=== PATIENT | male | born 1960 | race American Indian/Alaskan Native ===

== ENCOUNTER 2017-04-30 11:18 | Emergency (ER) | payer MEDICAID ==
[2017-04-30 12:14] LABS: Basophils % (Auto) 0.8 % (0.0-1.8); Hematocrit 41.1 % (35.5-45.6); Hemoglobin 13.2 gm/dl (11.8-15.2); Mean Corpuscular HGB Conc 32 % (32-34); Mean Corpuscular Hemoglobin 29 pg (28-32); Mean Corpuscular Volume 89 fl (84-94); Platelet Count 196 K/mm3 (140-440); Red Blood Count 4.63 M/mm3 (3.65-5.03); Red Cell Distribution Width 14.4 % (13.2-15.2); White Blood Count 10.5 K/mm3 (4.5-11.0)
[2017-04-30 12:39] LABS: Anion Gap 18 mmol/L; BUN/Creatinine Ratio 16.92; Blood Urea Nitrogen 22 mg/dL (9-20); Calcium 9.9 mg/dL (8.4-10.2); Carbon Dioxide 26 mmol/L (22-30); Chloride 98.8 mmol/L (98-107); Glucose 180 mg/dL (75-100); Potassium 3.9 mmol/L (3.6-5.0); Sodium 139 mmol/L (137-145)
[2017-04-30 12:51] LABS: Alanine Aminotransferase 13 units/L (7-56); Albumin 4.1 g/dL (3.9-5); Albumin/Globulin Ratio 1.2 %; Alkaline Phosphatase 60 units/L (35-129); Total Protein 7.4 g/dL (6.3-8.2)
[2017-04-30 12:58] LABS: Bacteria,Urine 1+ /HPF (Negative); Bilirubin,Urine NEG (Negative); Blood,Urine NEG (Negative); Ketones,Urine NEG (Negative); Leukocyte Esterase,Urine NEG (Negative); Mucus,Urine FEW /HPF; Nitrite,Urine NEG (Negative); Protein,Urine <15 mg/dL mg/dL (Negative); Urobilinogen,Urine < 2.0 mg/dL (<2.0)
--- NOTE | 2017-04-30 14:03 | Emergency Department Report ---
ED General Adult HPI - General Chief complaint: Dizziness Stated complaint: DIZZINESS Time Seen by Provider: 04/30/17 12:39 Source: patient Mode of arrival: Ambulatory Limitations: No Limitations - History of Present Illness Initial comments: The patient came to this facility he tells me "just as a precaution". 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 He states that his shop was underneath. He has had symptoms of malaise and increased allergies over the last month. He is not dizzy. He states he is compliant with his medicine for diabetes and hypertension. He admits that he does not have a doctor though. He is a type II diabetic. He does not complain of any difficulty in walking or vertigo. In fact he is not even complaining of dizziness at this time. He is worried about "mold". He denies pain or shortness of breath. -: month(s) Consistency: intermittent Improves with: none Worsens with: none Associated Symptoms: denies other symptoms - Related Data Allergies Allergy/AdvReac Type Severity Reaction Status Date / Time No Known Allergies Allergy Unverified 04/30/17 11:27 ED Review of Systems ROS: Stated complaint: DIZZINESS Other details as noted in HPI Constitutional: denies: chills, fever Eyes: denies: eye pain, eye discharge, vision change ENT: as per HPI, congestion. denies: ear pain, throat pain Respiratory: denies: cough, shortness of breath, wheezing Cardiovascular: denies: chest pain, palpitations Endocrine: no symptoms reported Gastrointestinal: denies: abdominal pain, nausea, diarrhea Genitourinary: denies: urgency, dysuria Musculoskeletal: denies: back pain, joint swelling, arthralgia Skin: denies: rash, lesions Neurological: denies: headache, weakness, paresthesias Psychiatric: denies: anxiety, depression Hematological/Lymphatic: denies: easy bleeding, easy bruising ED Past Medical Hx - Past Medical History Previous Medical History?: Yes Hx Hypertension: Yes Hx Diabetes: Yes - Surgical History Past Surgical History?: Yes Additional Surgical History: bilaterally knee surgery - Social History Smoking Status: Never Smoker Substance Use Type: Alcohol, Marijuana ED Physical Exam - General Limitations: No Limitations General appearance: alert, in no apparent distress - Head Head exam: Present: atraumatic, normocephalic - Eye Eye exam: Present: normal appearance. Absent: scleral icterus - ENT ENT exam: Present: mucous membranes moist - Neck Neck exam: Present: normal inspection. Absent: tenderness, meningismus - Respiratory Respiratory exam: Present: normal lung sounds bilaterally. Absent: respiratory distress - Cardiovascular Cardiovascular Exam: Present: regular rate, normal rhythm. Absent: systolic murmur, diastolic murmur, rubs, gallop - GI/Abdominal GI/Abdominal exam: Present: soft, normal bowel sounds. Absent: distended, tenderness, guarding, rebound - Rectal Rectal exam: Present: deferred - Extremities Exam Extremities exam: Present: normal inspection - Back Exam Back exam: Present: normal inspection - Neurological Exam Neurological exam: Present: alert, oriented X3, CN II-XII intact. Absent: motor sensory deficit - Psychiatric Psychiatric exam: Present: normal affect, normal mood - Skin Skin exam: Present: warm, dry, intact, normal color. Absent: rash ED Course Vital Signs 04/30/17 04/30/17 04/30/17 11:27 11:28 12:10 Temperature 98.0 F Pulse Rate 90 79 Respiratory 11 L Rate Blood Pressure 130/92 130/92 O2 Sat by Pulse 100 Oximetry - Reevaluation(s) Reevaluation #1: Patient rested comfortably and was symptom free here in the emergency department. He is referred to primary care. 04/30/17 14:01 ED Medical Decision Making - Lab Data Result diagrams: 04/30/17 11:42 04/30/17 11:42 Laboratory Results - last 24 hr 04/30/17 04/30/17 04/30/17 11:34 11:42 11:42 WBC 10.5 RBC 4.63 Hgb 13.2 Hct 41.1 MCV 89 MCH 29 MCHC 32 RDW 14.4 Plt Count 196 Lymph % (Auto) 21.1 [place] % (Auto) 5.6 Eos % (Auto) 2.0 Baso % (Auto) 0.8 Lymph # 2.2 [place] # 0.6 Eos # 0.2 Baso # 0.1 Seg Neutrophils % 70.5 H Seg Neutrophils # 7.4 VBG pH Sodium 139 Potassium 3.9 Chloride 98.8 Carbon Dioxide 26 Anion Gap 18 BUN 22 H Creatinine 1.3 Estimated GFR > 60 BUN/Creatinine Ratio 16.92 Glucose 180 H POC Glucose 181 H Calcium 9.9 Total Bilirubin 0.50 AST 14 ALT 13 Alkaline Phosphatase 60 Total Protein 7.4 Albumin 4.1 Albumin/Globulin Ratio 1.2 Urine Color Urine Turbidity Urine pH Ur Specific [place] Urine Protein Urine Glucose (UA) Urine Ketones Urine Blood Urine Nitrite Urine Bilirubin Urine Urobilinogen Ur Leukocyte Esterase Urine WBC (Auto) Urine RBC (Auto) Urine Bacteria (Auto) Hyaline Casts Urine Mucus 04/30/17 04/30/17 11:42 12:39 WBC RBC Hgb Hct MCV MCH MCHC RDW Plt Count Lymph % (Auto) [place] % (Auto) Eos % (Auto) Baso % (Auto) Lymph # [place] # Eos # Baso # Seg Neutrophils % Seg Neutrophils # VBG pH 7.405 Sodium Potassium Chloride Carbon Dioxide Anion Gap BUN Creatinine Estimated GFR BUN/Creatinine Ratio Glucose POC Glucose Calcium Total Bilirubin AST ALT Alkaline Phosphatase Total Protein Albumin Albumin/Globulin Ratio Urine Color Yellow Urine Turbidity Clear Urine pH 5.0 Ur Specific [place] 1.020 Urine Protein <15 mg/dl Urine Glucose (UA) Neg Urine Ketones Neg Urine Blood Neg Urine Nitrite Neg Urine Bilirubin Neg Urine Urobilinogen < 2.0 Ur Leukocyte Esterase Neg Urine WBC (Auto) 1.0 Urine RBC (Auto) 1.0 Urine Bacteria (Auto) 1+ Hyaline Casts 1 Urine Mucus Few Critical care attestation.: If time is entered above; I have spent that time in minutes in the direct care of this critically ill patient, excluding procedure time. ED Disposition Clinical Impression: Type 2 diabetes mellitus Qualifiers: Diabetes mellitus complication status: without complication Diabetes mellitus care home insulin use: without long term care administrator use Qualified Code(s): E11.9 - Type 2 diabetes mellitus without complications Allergic rhinitis Qualifiers: Chronicity: chronic Allergic rhinitis trigger: fungal spores Allergic rhinitis seasonality: non-seasonal Qualified Code(s): J30.89 - Other allergic rhinitis Disposition: DC-01 TO HOME OR SELFCARE Is pt being admited?: No Does the pt Need Aspirin: No Condition: Stable Instructions: Diabetes Mellitus Type 2 in Adults (ED) Additional Instructions: Follow-up with primary care physician and strongly recommended. Over-the- counter Zyrtec or Claritin would help with severe allergic symptoms. Obviously tried to to avoid a moldy environment. Referrals: PRIMARY CARE [Primary Care Provider] - 3-5 Days [facility] [Provider Group] - 3-5 Days Time of Disposition: 14:03
[2017-04-30 14:24] VITALS: BP 149/78
== END 2017-04-30 14:23 | disposition home or self-care (01) ==
LOC: ED 11:18
DX: E11.9 Type 2 diabetes mellitus without complications (principal); J30.9 Allergic rhinitis, unspecified; I10 Essential (primary) hypertension; F12.10 Cannabis abuse, uncomplicated
CPT/HCPCS: 36415; 80053; 81001; 82805; 82962; 85025; 99284

== ENCOUNTER 2017-06-19 09:25 | Inpatient (IN) | payer MEDICAID ==
[2017-06-19 10:17] LABS: Basophils % (Auto) 0.8 % (0.0-1.8); Eosinophils % (Auto) 1.1 % (0.0-4.3); Hematocrit 43.6 % (35.5-45.6); Hemoglobin 14.3 gm/dl (11.8-15.2); Mean Corpuscular HGB Conc 33 % (32-34); Mean Corpuscular Hemoglobin 30 pg (28-32); Mean Corpuscular Volume 91 fl (84-94); Platelet Count 214 K/mm3 (140-440); Red Blood Count 4.79 M/mm3 (3.65-5.03); Red Cell Distribution Width 14.8 % (13.2-15.2); White Blood Count 12.4 K/mm3 (4.5-11.0)
[2017-06-19 10:31] LABS: Creatine Kinase MB 2.1 ng/mL (0.0-4.0)
[2017-06-19 10:32] LABS: Alanine Aminotransferase 18 units/L (7-56); Albumin 4.1 g/dL (3.9-5); Albumin/Globulin Ratio 1.2 %; Alkaline Phosphatase 72 units/L (35-129); Anion Gap 17 mmol/L; BUN/Creatinine Ratio 13; Blood Urea Nitrogen 13 mg/dL (9-20); Calcium 9.5 mg/dL (8.4-10.2); Carbon Dioxide 27 mmol/L (22-30); Chloride 100.1 mmol/L (98-107); Creatine Kinase 159 units/L (55-170); Glucose 202 mg/dL (75-100); Potassium 4.3 mmol/L (3.6-5.0); Sodium 140 mmol/L (137-145); Total Protein 7.6 g/dL (6.3-8.2)
[2017-06-19] MEDS ORDERED: APRESOLINE IV ONE (11:14)
[2017-06-19 11:49] LABS: INR 0.94 (0.87-1.13)
--- NOTE | 2017-06-19 12:33 | Cat Scan Report ---
CT HEAD WITHOUT CONTRAST: 06/19/17 09:25:00 CLINICAL: Headache. TECHNIQUE: 2.5-mm noncontrast scans. COMPARISON:None FINDINGS: The ventricles are normal size. The frontal lobe sulci are mildly enlarged.A tiny left basal ganglia lacunar infarct. No suspicious hypodensity. No mass or mass effect. No hemorrhage, edema or extra-axial collection. The sinuses are clear. Normal orbits and soft tissues. The calvarium and skull base are intact. IMPRESSION: Mild cortical atrophy and a tiny left basal ganglia chronic lacunar infarct. No acute changes.
[2017-06-19] MEDS ORDERED: ZOFRAN IV ONE (12:37)
[2017-06-19] MEDS ORDERED: ASPIRIN PO ONE (12:37)
[2017-06-19] MEDS ORDERED: NACL 0.9% 500 ML 500 ML IV ONE (12:37)
[2017-06-19] MEDS ORDERED: NORMODYNE IV ONE (12:37)
--- NOTE | 2017-06-19 12:38 | Emergency Department Report ---
ED General Adult HPI - General Chief complaint: High BP Stated complaint: DIZZY Time Seen by Provider: 06/19/17 12:19 Source: patient Mode of arrival: Ambulatory Limitations: No Limitations - History of Present Illness Initial comments: This is a 57-year-old male. The patient has no primary care doctor locally. He moved here from [place] 5 months ago. He complains of dizziness and generalized weakness. The dizzy sensation has been presents since . It is constant. It has no exacerbating or relieving factors. He describes it as "a funny feeling." He has no ataxia. He has no vertigo. He has no syncope. He also describes a headache. The headache is throbbing and global. The headache started a few days ago. It is not sudden thunderclap in nature. It did not reach maximal intensity within an hour. He has no exacerbating or relieving factors. Patient also describes "funny feeling in my chest." He indicates that he is not having chest pain, chest tightness. He denies vomiting and diaphoresis. He also indicates that he is having shortness of breath. There are no pulmonary embolus or DVT risk factors. His symptoms do not have exacerbating or relieving factors. -: Gradual Location: head, chest Quality: aching Consistency: intermittent Improves with: none Worsens with: none Associated Symptoms: headaches, loss of appetite, shortness of breath, weakness. denies: chest pain - Related Data Home Medications Medication Instructions Recorded Confirmed Last Taken Unobtainable 06/19/17 06/19/17 Unknown Allergies Allergy/AdvReac Type Severity Reaction Status Date / Time No Known Allergies Allergy Unverified 04/30/17 11:27 ED Review of Systems ROS: Stated complaint: DIZZY Other details as noted in HPI Constitutional: malaise Eyes: denies: eye discharge ENT: denies: epistaxis Respiratory: denies: cough Cardiovascular: denies: chest pain Gastrointestinal: denies: abdominal pain Genitourinary: denies: dysuria Musculoskeletal: denies: back pain Neurological: headache. denies: weakness, numbness, paresthesias, confusion ED Past Medical Hx - Past Medical History Hx Hypertension: Yes Hx Diabetes: Yes - Surgical History Additional Surgical History: bilaterally knee surgery - Social History Smoking Status: Never Smoker Substance Use Type: Marijuana - Medications Home Medications: Home Medications Medication Instructions Recorded Confirmed Last Taken Type Unobtainable 06/19/17 06/19/17 Unknown History ED Physical Exam - General Limitations: No Limitations General appearance: alert, in no apparent distress - Head Head exam: Present: atraumatic, normocephalic - Eye Eye exam: Present: normal appearance, EOMI, other (visual acuity intact to finger counting, color perception, reading at a close distance). Absent: nystagmus - ENT ENT exam: Present: normal exam, normal orophraynx, mucous membranes moist, TM's normal bilaterally, normal external ear exam - Neck Neck exam: Present: normal inspection, full ROM - Respiratory Respiratory exam: Present: normal lung sounds bilaterally. Absent: respiratory distress - Cardiovascular Cardiovascular Exam: Present: regular rate, normal rhythm, normal heart sounds. Absent: systolic murmur, diastolic murmur, rubs, gallop - GI/Abdominal GI/Abdominal exam: Present: soft, normal bowel sounds. Absent: distended, tenderness, guarding, rebound, rigid, pulsatile mass - Rectal Rectal exam: Present: deferred - Extremities Exam Extremities exam: Present: normal inspection, full ROM, normal capillary refill. Absent: pedal edema, joint swelling, calf tenderness - Back Exam Back exam: Present: normal inspection, full ROM. Absent: tenderness, CVA tenderness (R), paraspinal tenderness, vertebral tenderness - Neurological Exam Neurological exam: Present: alert, oriented X3, normal gait (normal gait. Normal tandem gait. Negative pronator drift. Normal [id number]. No past pointing.), other (Extraocular movements intact. Tongue midline. No facial droop. Facial sensation intact to light touch in the V1, V2, V3 distribution bilaterally. 5 and 5 strength in 4 extremities.. Sensation is intact to light touch in 4 extremities.). Absent: motor sensory deficit - Psychiatric Psychiatric exam: Present: normal affect, normal mood, anxious - Skin Skin exam: Present: warm, dry, intact, normal color. Absent: rash ED Course Vital Signs 06/19/17 06/19/17 06/19/17 09:45 10:51 11:01 Temperature 98 F Pulse Rate 82 82 Respiratory 18 17 Rate Blood Pressure 240/134 195/153 O2 Sat by Pulse 99 100 100 Oximetry 06/19/17 06/19/17 06/19/17 11:02 11:15 11:30 Temperature Pulse Rate 85 82 Respiratory 18 16 18 Rate Blood Pressure 212/149 203/146 O2 Sat by Pulse 100 100 100 Oximetry 06/19/17 06/19/17 06/19/17 11:45 12:14 12:15 Temperature Pulse Rate 91 H Respiratory 18 7 L Rate Blood Pressure 209/146 219/136 219/136 O2 Sat by Pulse 100 100 Oximetry 06/19/17 06/19/17 06/19/17 12:30 12:45 13:00 Temperature Pulse Rate 92 H 95 H 93 H Respiratory 13 16 17 Rate Blood Pressure 210/129 215/142 221/145 O2 Sat by Pulse 100 100 100 Oximetry 06/19/17 06/19/17 06/19/17 13:15 13:17 13:30 Temperature Pulse Rate 89 90 81 Respiratory 20 18 Rate Blood Pressure 189/122 221/145 194/131 O2 Sat by Pulse 100 100 Oximetry 06/19/17 13:45 Temperature Pulse Rate 84 Respiratory 15 Rate Blood Pressure 186/131 O2 Sat by Pulse 100 Oximetry ED Medical Decision Making - Lab Data Result diagrams: 06/19/17 09:52 06/19/17 09:52 Vital Signs 06/19/17 06/19/17 06/19/17 09:45 10:51 11:01 Temperature 98 F Pulse Rate 82 82 Respiratory 18 17 Rate Blood Pressure 240/134 195/153 O2 Sat by Pulse 99 100 100 Oximetry 06/19/17 06/19/17 06/19/17 11:02 11:15 11:30 Temperature Pulse Rate 85 82 Respiratory 18 16 18 Rate Blood Pressure 212/149 203/146 O2 Sat by Pulse 100 100 100 Oximetry 06/19/17 06/19/17 06/19/17 11:45 12:14 12:15 Temperature Pulse Rate 91 H Respiratory 18 7 L Rate Blood Pressure 209/146 219/136 219/136 O2 Sat by Pulse 100 100 Oximetry 06/19/17 06/19/17 06/19/17 12:30 12:45 13:00 Temperature Pulse Rate 92 H 95 H 93 H Respiratory 13 16 17 Rate Blood Pressure 210/129 215/142 221/145 O2 Sat by Pulse 100 100 100 Oximetry 06/19/17 06/19/17 06/19/17 13:15 13:17 13:30 Temperature Pulse Rate 89 90 81 Respiratory 20 18 Rate Blood Pressure 189/122 221/145 194/131 O2 Sat by Pulse 100 100 Oximetry 06/19/17 13:45 Temperature Pulse Rate 84 Respiratory 15 Rate Blood Pressure 186/131 O2 Sat by Pulse 100 Oximetry Lab Results 06/19/17 06/19/17 06/19/17 Range/Units 09:52 09:52 11:22 WBC 12.4 H (4.5-11.0) K/mm3 RBC 4.79 (3.65-5.03) M/mm3 Hgb 14.3 (11.8-15.2) gm/dl Hct 43.6 (35.5-45.6) % MCV 91 (84-94) fl MCH 30 (28-32) pg MCHC 33 (32-34) % RDW 14.8 (13.2-15.2) % Plt Count 214 (140-440) K/mm3 Lymph % (Auto) 15.5 (13.4-35.0) % [place] % (Auto) 5.4 (0.0-7.3) % Eos % (Auto) 1.1 (0.0-4.3) % Baso % (Auto) 0.8 (0.0-1.8) % Lymph # 1.9 (1.2-5.4) K/mm3 [place] # 0.7 (0.0-0.8) K/mm3 Eos # 0.1 (0.0-0.4) K/mm3 Baso # 0.1 (0.0-0.1) K/mm3 Seg Neutrophils % 77.2 H (40.0-70.0) % Seg Neutrophils # 9.6 H (1.8-7.7) K/mm3 PT 13.1 (12.2-14.9) Sec. INR 0.94 (0.87-1.13) Sodium 140 (137-145) mmol/L Potassium 4.3 (3.6-5.0) mmol/L Chloride 100.1 (98-107) mmol/L Carbon Dioxide 27 (22-30) mmol/L Anion Gap 17 mmol/L BUN 13 (9-20) mg/dL Creatinine 1.0 (0.8-1.5) mg/dL Estimated GFR > 60 ml/min BUN/Creatinine Ratio 13 % Glucose 202 H (75-100) mg/dL Calcium 9.5 (8.4-10.2) mg/dL Total Bilirubin 0.40 (0.1-1.2) mg/dL AST 12 (5-40) units/L ALT 18 (7-56) units/L Alkaline Phosphatase 72 (35-129) units/L Total Creatine Kinase 159 (55-170) units/L CK-MB (CK-2) 2.1 (0.0-4.0) ng/mL CK-MB (CK-2) Rel Index 1.3 (0-4) Total Protein 7.6 (6.3-8.2) g/dL Albumin 4.1 (3.9-5) g/dL Albumin/Globulin Ratio 1.2 % - EKG Data -: EKG Interpreted by Me - EKG Data 06/19/17 14:04 Sinus, 84 bpm, borderline left axis deviation, QTC prolonged, frequent sinus pauses, not consistent with ST elevation myocardial infarction, repeat EKG is unchanged, appears unchanged from prior. - Radiology Data Radiology results: report reviewed, image reviewed Noncontrast CT scan of the brain is negative. X-ray of the chest is negative. - Medical Decision Making Differential diagnosis, including but not limited to: Hypertensive urgency, hypertensive cardiomyopathy, posterior reversible leukoencephalopathy, Assessment and plan: 57-year-old male with nonspecific weakness, nonspecific chest discomfort, quite hypertensive, GCS of 15, NIH score of 0, visual acuity intact to direct confrontation, no pulmonary embolus or DVT risk factors, low risk by well's criteria, will be admitted for treatment of symptomatic hypertensive urgency. He is given hydralazine and then labetalol. Case is presented to the Hospital physician, Dr. Welch, who accepts the patient to the medical service. Critical care attestation.: If time is entered above; I have spent that time in minutes in the direct care of this critically ill patient, excluding procedure time. ED Disposition Clinical Impression: Hypertensive urgency, malignant Disposition: DC-09 OP ADMIT IP TO THIS HOSP Is pt being admited?: Yes Condition: Good Referrals: PRIMARY CARE, [Primary Care Provider] - 3-5 Days
--- NOTE | 2017-06-19 12:48 | History and Physical Report ---
History of Present Illness Chief complaint: My head hurts, and my blood pressure is high History of present illness: 57 YO Male with HTN, DM, Obesity,Metabolic Syndrome presents to ED for evaluation. Pt states that he has experienced Headache, dizziness and weakness for the past 2 days. Pt states that symptoms have worsened over the past 6 hours. Pt denies alleviating or worsening factors. Pt denies fever, chills, CP, Palpitatons, Vertigo, BRBPR, Syncope, Vision changes, Back pain, NVD. Pt seen and evaluated in ED and found to have a blood pressure of 240/134. Pt found to be confused on exam but is able to protect his airway, and has a persistent headache. Pt treated with IV antihypertensive therapy. Past History Past Medical History: diabetes, hypertension Past Surgical History: total knee replacement Social history: single. denies: smoking, alcohol abuse, prescription drug abuse , IV drug use Family history: hypertension Medications and Allergies Allergies Allergy/AdvReac Type Severity Reaction Status Date / Time No Known Allergies Allergy Unverified 04/30/17 11:27 Home Medications Medication Instructions Recorded Confirmed Last Taken Type Lisinopril 40 mg PO DAILY 06/19/17 06/19/17 Unknown History metFORMIN 1,000 mg PO DAILY 06/19/17 06/19/17 06/19/17 History Active Meds: Active Medications Sodium Chloride (Nacl 0.9% 500 Ml) 500 mls @ 999 mls/hr IV ONCE ONE Stop: 06/19/17 13:07 Review of Systems Constitutional: no weight loss, no weight gain Ears, nose, mouth and throat: no ear pain, no ear discharge, no tinnitis, no decreased hearing, no nose pain, no nasal congestion, no nasal discharge, no sinus pressure Cardiovascular: no chest pain, no orthopnea, no palpitations, no rapid/ irregular heart beat, no edema Respiratory: no cough, no cough with sputum, no excessive sputum, no hemoptysis , no shortness of breath, no dyspnea on exertion Gastrointestinal: no abdominal pain, no nausea, no vomiting, no hematemesis Genitourinary Male: no hematuria, no flank pain, no discharge, no urinary frequency, no urinary hesitancy, no nocturia Rectal: no pain, no incontinence, no bleeding Musculoskeletal: no neck pain, no shooting arm pain, no arm numbness/tingling, no low back pain, no shooting leg pain, no leg numbness/tingling Integumentary: no rash, no pruritis, no redness, no sores, no wounds, no jaundice Neurological: no head injury, no transient paralysis, no paralysis, no weakness , no parathesias, no numbness, no tingling, no seizures, no syncope Psychiatric: no memory loss, no change in sleep habits, no sleep disturbances, no insomnia, no hypersomnia, no change in appetite, no change in libido, no suicidal ideation Endocrine: no heat intolerance, no polyphagia, no excessive thirst, no polydipsia, no polyuria, no nocturia, no excessive sweating Hematologic/Lymphatic: no easy bruising, no easy bleeding Allergic/Immunologic: no urticaria, no allergic rhinitis, no wheezing Exam - Constitutional Vitals: Temp Pulse Resp BP Pulse Ox 98 F 84 18 212/149 100 06/19/17 09:45 06/19/17 11:30 06/19/17 11:02 06/19/17 11:30 06/19/17 11:02 General appearance: Present: mild distress - EENT Eyes: Present: PERRL ENT: hearing intact, clear oral mucosa - Neck Neck: Present: supple, normal ROM - Respiratory Respiratory effort: normal Respiratory: bilateral: CTA - Cardiovascular Heart Sounds: Present: S1 & S2. Absent: rub, click - Extremities Extremities: pulses symmetrical, No edema Peripheral Pulses: within normal limits - Abdominal General gastrointestinal: Present: soft, non-tender, non-distended, normal bowel sounds Male genitourinary: Present: normal - Integumentary Integumentary: Present: clear, warm, dry - Musculoskeletal Musculoskeletal: gait normal, strength equal bilaterally - Psychiatric Psychiatric: no intact judgment & insight, no memory intact - Neurologic Neurologic: CNII-XII intact, moves all extremities Results - Labs CBC & Chem 7: 06/19/17 09:52 06/19/17 09:52 Labs: Abnormal lab results 06/19/17 06/19/17 Range/Units 09:52 09:52 WBC 12.4 H (4.5-11.0) K/mm3 Seg Neutrophils % 77.2 H (40.0-70.0) % Seg Neutrophils # 9.6 H (1.8-7.7) K/mm3 Glucose 202 H (75-100) mg/dL Assessment and Plan - Patient Problems (1) Hypertensive urgency, malignant Current Visit: Yes Status: Acute Plan to address problem: Neuro checks, IV hydralazine, restart lisinopril, monitor bp q shift, Goal systolic overnight 165-190. Pt admitted with systolic of 240. (2) Encephalopathy Current Visit: Yes Status: Acute (3) Headache Current Visit: Yes Status: Acute Qualifiers: Headache type: H Headache chronicity pattern: H Intractability: I Plan to address problem: Pain control, CT head, neuro checks, blood pressure control. (4) DVT prophylaxis Current Visit: Yes Status: Acute
--- NOTE | 2017-06-19 13:39 | XRay Report ---
CHEST TWO VIEWS: 06/19/17 09:25:00 CLINICAL: Shortness of breath. COMPARISON: None FINDINGS: Normal heart and pulmonary vasculature. The lungs are normally expanded and clear. The bones and soft tissues are normal. IMPRESSION: Normal.No acute cardiopulmonary process.
[2017-06-19] MEDS ORDERED: ZOFRAN IV PRN (13:48)
[2017-06-19] MEDS ORDERED: TYLENOL PO PRN (13:48)
[2017-06-19] MEDS ORDERED: DULCOLAX PR PRN (13:48)
[2017-06-19] MEDS ORDERED: PROVENTIL IH PRN (13:48)
[2017-06-19] MEDS ORDERED: MILK OF MAGNESIA PO PRN (13:48)
[2017-06-19 14:35] LABS: Bilirubin,Urine NEG (Negative); Blood,Urine NEG (Negative); Ketones,Urine NEG (Negative); Leukocyte Esterase,Urine NEG (Negative); Mucus,Urine FEW /HPF; Nitrite,Urine NEG (Negative); Protein,Urine <15 mg/dL mg/dL (Negative); RBC,Urine < 1.0 /HPF (0.0-6.0); Urobilinogen,Urine < 2.0 mg/dL (<2.0); WBC,Urine < 1.0 /HPF (0.0-6.0)
[2017-06-19] MEDS: APRESOLINE IV PRN (15:49)
[2017-06-20] MEDS: APRESOLINE IV PRN ×2 (07:32→17:02)
[2017-06-20] MEDS: NORVASC PO SCH (09:16)
[2017-06-20] MEDS ORDERED: ZESTRIL PO SCH ×2 (10:00→12:37)
--- NOTE | 2017-06-20 12:42 | Progress Note ---
Assessment and Plan Assessment and plan: 57-year-old -[place]in[place] male with past medical history significant for hypertension, diabetes mellitus2 presented to the emergency department with complaints of headache and weakness. In the emergency department systolic blood pressure was >240 and patient was admitted to the floor for the management of hyperglycemia and hypertensive urgency Hypertensive urgency - Patient was treated with IV hydralazine, currently he is also started with lisinopril and amlodipine, blood pressure is trending down Headache - CT head was negative, likely due to the uncontrolled hypertension - Resolved DM with hyperglycemia - Sliding scale insulin Medication noncompliance - Patient was counseled about medication adherence DVT prophylaxis Chemical Disposition Patient will be discharged tomorrow with oral medications and metformin. History Interval history: Patient was seen and evaluated this morning, patient was resting comfortably, headache subsided. Hospitalist Physical - Physical exam Narrative exam: Not in cardiopulmonary distress. The patient is obese. Vital signs as documented. Head exam is unremarkable. No scleral icterus . Neck is without jugular venous distension, thyromegaly, or carotid bruits. Lungs are clear to auscultation. Cardiac exam reveals regular rate and Rhythm. First and second heart sounds normal. No murmurs, rubs or gallops. Abdominal exam reveals normal bowel sounds, no masses, no organomegaly and no aortic enlargement. Extremities are nonedematous and both femoral and pedal pulses are normal. TACK PULLER: Alert and oriented 3. No focal weakness. - Constitutional Vitals: Temp Pulse Resp BP Pulse Ox 97.7 F 82 18 185/116 99 06/20/17 12:15 06/20/17 08:00 06/20/17 12:15 06/20/17 12:15 06/20/17 08:00 General appearance: Present: mild distress Results - Labs CBC & Chem 7: 06/19/17 09:52 06/19/17 09:52 Labs: Laboratory Last Values WBC 12.4 K/mm3 (4.5-11.0) H 06/19/17 09:52 RBC 4.79 M/mm3 (3.65-5.03) 06/19/17 09:52 Hgb 14.3 gm/dl (11.8-15.2) 06/19/17 09:52 Hct 43.6 % (35.5-45.6) 06/19/17 09:52 MCV 91 fl (84-94) 06/19/17 09:52 MCH 30 pg (28-32) 06/19/17 09:52 MCHC 33 % (32-34) 06/19/17 09:52 RDW 14.8 % (13.2-15.2) 06/19/17 09:52 Plt Count 214 K/mm3 (140-440) 06/19/17 09:52 Lymph % (Auto) 15.5 % (13.4-35.0) 06/19/17 09:52 [place] % (Auto) 5.4 % (0.0-7.3) 06/19/17 09:52 Eos % (Auto) 1.1 % (0.0-4.3) 06/19/17 09:52 Baso % (Auto) 0.8 % (0.0-1.8) 06/19/17 09:52 Lymph # 1.9 K/mm3 (1.2-5.4) 06/19/17 09:52 [place] # 0.7 K/mm3 (0.0-0.8) 06/19/17 09:52 Eos # 0.1 K/mm3 (0.0-0.4) 06/19/17 09:52 Baso # 0.1 K/mm3 (0.0-0.1) 06/19/17 09:52 Seg Neutrophils % 77.2 % (40.0-70.0) H 06/19/17 09:52 Seg Neutrophils # 9.6 K/mm3 (1.8-7.7) H 06/19/17 09:52 PT 13.1 Sec. (12.2-14.9) 06/19/17 11:22 INR 0.94 (0.87-1.13) 06/19/17 11:22 Sodium 140 mmol/L (137-145) 06/19/17 09:52 Potassium 4.3 mmol/L (3.6-5.0) 06/19/17 09:52 Chloride 100.1 mmol/L (98-107) 06/19/17 09:52 Carbon Dioxide 27 mmol/L (22-30) 06/19/17 09:52 Anion Gap 17 mmol/L 06/19/17 09:52 BUN 13 mg/dL (9-20) 06/19/17 09:52 Creatinine 1.0 mg/dL (0.8-1.5) 06/19/17 09:52 Estimated GFR > 60 ml/min 06/19/17 09:52 BUN/Creatinine Ratio 13 % 06/19/17 09:52 Glucose 202 mg/dL (75-100) H 06/19/17 09:52 POC Glucose 197 (70-105) H 06/20/17 11:49 Calcium 9.5 mg/dL (8.4-10.2) 06/19/17 09:52 Total Bilirubin 0.40 mg/dL (0.1-1.2) 06/19/17 09:52 AST 12 units/L (5-40) 06/19/17 09:52 ALT 18 units/L (7-56) 06/19/17 09:52 Alkaline Phosphatase 72 units/L (35-129) 06/19/17 09:52 Total Creatine Kinase 159 units/L (55-170) 06/19/17 09:52 CK-MB (CK-2) 2.1 ng/mL (0.0-4.0) 06/19/17 09:52 CK-MB (CK-2) Rel Index 1.3 (0-4) 06/19/17 09:52 Total Protein 7.6 g/dL (6.3-8.2) 06/19/17 09:52 Albumin 4.1 g/dL (3.9-5) 06/19/17 09:52 Albumin/Globulin Ratio 1.2 % 06/19/17 09:52 Urine Color Straw (Yellow) 06/19/17 13:55 Urine Turbidity Clear (Clear) 06/19/17 13:55 Urine pH 8.0 (5.0-7.0) H 06/19/17 13:55 Ur Specific [place] 1.014 (1.003-1.030) 06/19/17 13:55 Urine Protein <15 mg/dl mg/dL (Negative) 06/19/17 13:55 Urine Glucose (UA) 50 mg/dL (Negative) 06/19/17 13:55 Urine Ketones Neg mg/dL (Negative) 06/19/17 13:55 Urine Blood Neg (Negative) 06/19/17 13:55 Urine Nitrite Neg (Negative) 06/19/17 13:55 Urine Bilirubin Neg (Negative) 06/19/17 13:55 Urine Urobilinogen < 2.0 mg/dL (<2.0) 06/19/17 13:55 Ur Leukocyte Esterase Neg (Negative) 06/19/17 13:55 Urine WBC (Auto) < 1.0 /HPF (0.0-6.0) 06/19/17 13:55 Urine RBC (Auto) < 1.0 /HPF (0.0-6.0) 06/19/17 13:55 Hyaline Casts 4 /LPF 06/19/17 13:55 Urine Mucus Few /HPF 06/19/17 13:55
[2017-06-20] MEDS: NOVOLOG SUB-Q SCH ×3 (12:50→23:28)
[2017-06-20] MEDS: ZESTRIL PO SCH (12:50)
--- NOTE | 2017-06-21 07:05 | Discharge Summary ---
Providers - Providers Date of Admission: 06/19/17 13:48 Attending physician: GANESH GREENWOOD MD Primary care physician: HUYEN SCOTT MD Hospitalization Condition: Good Disposition: DC-01 TO HOME OR SELFCARE Time spent for discharge: 31 minutes - Discharge Diagnoses (1) Encephalopathy Status: Acute (2) Headache Status: Acute Qualifiers: Headache type: H Headache chronicity pattern: H Intractability: I (3) Hypertensive urgency, malignant Status: Acute (4) Diabetes mellitus with hyperglycemia Status: Acute Qualifiers: Diabetes mellitus type: D Diabetes mellitus long term care pharmacist insulin use: D Core Measure Documentation - Palliative Care Palliative Care/ Comfort Measures: Not Applicable - Core Measures Any of the following diagnoses?: none Exam - Physical Exam Narrative exam: Not in cardiopulmonary distress. The patient is obese. Vital signs as documented. Head exam is unremarkable. No scleral icterus . Neck is without jugular venous distension, thyromegaly, or carotid bruits. Lungs are clear to auscultation. Cardiac exam reveals regular rate and Rhythm. First and second heart sounds normal. No murmurs, rubs or gallops. Abdominal exam reveals normal bowel sounds, no masses, no organomegaly and no aortic enlargement. Extremities are nonedematous and both femoral and pedal pulses are normal. ANIMAL CARE TECHNICIAN: Alert and oriented 3. No focal weakness. - Constitutional Vitals: Temp Pulse Resp BP Pulse Ox 98.6 F 82 16 148/103 99 06/20/17 21:51 06/20/17 08:00 06/20/17 21:51 06/20/17 21:51 06/20/17 08:00 Plan Activity: no restrictions Weight Bearing Status: Full Weight Bearing Diet: low cholesterol, low salt, diabetic Follow up with: PRIMARY CARE, [Primary Care Provider] - 3-5 Days Prescriptions: amLODIPine [Norvasc] 10 mg PO QDAY #30 tablet Hydrochlorothiazide [HCTZ] 25 mg PO QDAY #30 tablet Lisinopril 40 mg PO DAILY #30 metFORMIN 1,000 mg PO DAILY #30
[2017-06-21] MEDS: NOVOLOG SUB-Q SCH (09:01)
[2017-06-21] MEDS: NORVASC PO SCH (09:13)
[2017-06-21] MEDS: ZESTRIL PO SCH (09:13)
--- NOTE | 2017-06-21 10:33 | Query-Altered Level of Consc. ---
David Connell___Roberto Date:___06/21/2017 Roll Hauler/CDS:___Pau Phone#:___[phone] Exercise your independent professional judgment when responding to this query. Questions asked do not imply a particular answer is desired or expected. We greatly appreciate your clarification on this issue. Clinical Documentation States: 57 Year male was admitted on 06/19/2017 for Headache, dizziness and weakness for the past 2 days. The Discharge summary (Dr. Mejia) states "- Discharge Diagnoses (1) Encephalopathy Status: Acute." Please provide an appropriate diagnosis clarifying the Etiology and Acuity of this clinical scenario: [ x] Metabolic Encephalopathy [ ] Toxic Encephalopathy [ ] Toxic - Metabolic Encephalopathy [ ] Septic Encephalopathy with Sepsis [ ] Septic Encephalopathy without Sepsis [ ] Acute Hepatic Encephalopathy [ ] Subacute Hepatic Encephalopathy [ ] Encephalopathy [ ] Other: [ ] Unable To Determine [ ]Comment/Explanation: Present on Admission: [ x] Yes (Y) [ ] Clinically undeterminable (W) [ ] No (N) Please also document response in your Progress Notes and/or Discharge Summary and indicate if the condition was present on admission. MTDD
[2017-06-21] MEDS ORDERED: HCTZ PO ONE (11:12)
[2017-06-21 11:13] VITALS: BP 173/116
== END 2017-06-21 11:44 | disposition home or self-care (01) | DRG 304 ==
LOC: ED 09:25 → 3A 13:48
PROVIDERS: ADMIT Internal Medicine; ATTEND Internal Medicine
DX: I16.0 Hypertensive urgency (principal); G93.41 Metabolic encephalopathy; E11.65 Type 2 diabetes mellitus with hyperglycemia; I10 Essential (primary) hypertension; F12.10 Cannabis abuse, uncomplicated; Z96.659 Presence of unspecified artificial knee joint; Z82.49 Family history of ischemic heart disease and other diseases of the circulatory system; Z79.899 Other long term (current) drug therapy; Z79.84 Long term (current) use of oral hypoglycemic drugs
CPT/HCPCS: 36415; 70450; 71020; 80053; 81001; 82550; 82553; 82962; 85025; 85610; 93005; 93010; J0360; J1815; J2405; J7040

== ENCOUNTER 2018-04-08 06:31 | Inpatient (IN) | payer MEDICAID, OTHER ==
[2018-04-08 07:47] LABS: Basophils # (Auto) 0.1 K/mm3 (0.0-0.1); Basophils % (Auto) 0.5 % (0.0-1.8); Eosinophils # (Auto) 0.1 K/mm3 (0.0-0.4); Eosinophils % (Auto) 0.4 % (0.0-4.3); Hematocrit 47.4 % (35.5-45.6); Hemoglobin 15.4 gm/dl (11.8-15.2); Lymphocytes # (Auto) 3.3 K/mm3 (1.2-5.4); Lymphocytes % (Auto) 17.1 % (13.4-35.0); Mean Corpuscular HGB Conc 33 % (32-34); Mean Corpuscular Hemoglobin 29 pg (28-32); Mean Corpuscular Volume 90 fl (84-94); Monocytes # (Auto) 1.2 K/mm3 (0.0-0.8); Monocytes % (Auto) 6.1 % (0.0-7.3); Platelet Count 285 K/mm3 (140-440); Red Blood Count 5.27 M/mm3 (3.65-5.03); Red Cell Distribution Width 14.3 % (13.2-15.2)
[2018-04-08 08:03] LABS: BUN/Creatinine Ratio 14; Blood Urea Nitrogen 15 mg/dL (9-20); Calcium 9.7 mg/dL (8.4-10.2); Hemolysis Index 5
--- NOTE | 2018-04-08 08:31 | Emergency Department Report ---
ED Dizziness HPI - General Chief Complaint: Dizziness Stated Complaint: VOMITING/DIZZINESS/SWEATS Time Seen by Provider: 04/08/18 07:40 Source: patient Mode of arrival: Ambulatory Limitations: No Limitations - History of Present Illness Initial Comments: Patient is a 58-year-old male presents emergency room with complaints of dizziness and nausea and vomiting 1 week. Patient states he is unable to hold anything down. Patient states he has diabetes and high blood pressure but has been out of his meds for 9 months. Patient states the nausea/vomiting is worse with food and fluids. Patient states the nausea/vomiting is better with rest. Patient denies blood in vomitus. Patient denies blood in the stool. Patient denies diarrhea. Patient denies chest pain or shortness of breath. Patient denies abdominal pain. Patient denies fever and chills. Patient complains of diaphoresis MD Complaint: dizziness -: Sudden Timing: sudden onset Description: lightheadedness History of Same: No History of Trauma: No Severity: severe Improves With: rest Worsens With: movement, exertion Associated Symptoms: diaphoresis, loss of appetite. denies: ataxia, chest pain , confusion, cough, fever/chills, malaise, rash, seizure, shortness of breath, syncope, weakness - Related Data Home Medications Medication Instructions Recorded Confirmed Last Taken No Known Home Medications [No 04/08/18 04/08/18 Unknown Reported Home Medications] Allergies Allergy/AdvReac Type Severity Reaction Status Date / Time No Known Allergies Allergy Unverified 04/30/17 11:27 ED Review of Systems ROS: Stated complaint: VOMITING/DIZZINESS/SWEATS Other details as noted in HPI Constitutional: denies: chills, fever Eyes: denies: eye pain, eye discharge, vision change ENT: denies: ear pain, throat pain Respiratory: denies: cough, shortness of breath, wheezing Cardiovascular: denies: chest pain, palpitations Endocrine: no symptoms reported Gastrointestinal: nausea, vomiting. denies: abdominal pain, diarrhea Genitourinary: denies: urgency, dysuria Musculoskeletal: denies: back pain, joint swelling, arthralgia Skin: denies: rash, lesions Neurological: vertigo. denies: headache, weakness, paresthesias Psychiatric: denies: anxiety, depression Hematological/Lymphatic: denies: easy bleeding, easy bruising ED Past Medical Hx - Past Medical History Previous Medical History?: Yes Hx Hypertension: Yes Hx Diabetes: Yes - Surgical History Past Surgical History?: Yes Additional Surgical History: bilaterally knee surgery - Family History Family history: no significant - Social History Smoking Status: Never Smoker Substance Use Type: None - Medications Home Medications: Home Medications Medication Instructions Recorded Confirmed Last Taken Type No Known Home Medications [No 04/08/18 04/08/18 Unknown History Reported Home Medications] ED Physical Exam - General Limitations: No Limitations General appearance: alert, in no apparent distress - Head Head exam: Present: atraumatic, normocephalic - Eye Eye exam: Present: normal appearance - ENT ENT exam: Present: mucous membranes moist - Neck Neck exam: Present: normal inspection - Respiratory Respiratory exam: Present: normal lung sounds bilaterally. Absent: respiratory distress - Cardiovascular Cardiovascular Exam: Present: regular rate, normal rhythm. Absent: systolic murmur, diastolic murmur, rubs, gallop - GI/Abdominal GI/Abdominal exam: Present: soft, normal bowel sounds - Rectal Rectal exam: Present: deferred - Extremities Exam Extremities exam: Present: normal inspection - Back Exam Back exam: Present: normal inspection - Neurological Exam Neurological exam: Present: alert, oriented X3 - Psychiatric Psychiatric exam: Present: normal affect, normal mood - Skin Skin exam: Present: warm, dry, intact, normal color. Absent: rash ED Course Vital Signs 04/08/18 04/08/18 04/08/18 07:19 09:11 09:12 Temperature 97.5 F L 98.0 F Pulse Rate 95 H 84 Respiratory 28 H 18 18 Rate Blood Pressure 225/155 Blood Pressure 232/124 [Left] O2 Sat by Pulse 100 98 98 Oximetry 04/08/18 04/08/18 04/08/18 09:30 10:06 11:16 Temperature Pulse Rate 89 101 H 89 Respiratory 18 18 18 Rate Blood Pressure Blood Pressure 222/143 210/123 157/99 [Left] O2 Sat by Pulse 98 100 100 Oximetry - Reevaluation(s) Reevaluation #1: Patient denies nausea or vomiting at this time. Patient states he is feeling better. However patient's blood pressure is 222/143. We'll give patient a dose of hydralazine and monitor blood pressure. Blood pressure is not improving we will put him on a drip. 04/08/18 09:32 Reevaluation #2: Blood pressure still significantly elevated. We'll start patient on nicardipine drip and monitor blood pressure 04/08/18 10:20 Discussed plan of care with patient. Patient agrees plan of care and admission. All results discussed with patient 04/08/18 10:34 - Consultations Consultation #1: hospitalist consulted . hospitalist to assume care. 04/08/18 10:33 ED Medical Decision Making - Lab Data Result diagrams: 04/08/18 07:33 04/08/18 07:38 - EKG Data -: EKG Interpreted by Me EKG shows normal: sinus rhythm, axis, intervals, QRS complexes, ST-T waves Rate: normal - Radiology Data Radiology results: report reviewed, image reviewed interpreted by me: CT scan of abdomen and pelvis without IV contrast: History: Nausea and vomiting. Findings: Normal lung bases. No pleural pericardial effusion. Small sliding hiatal hernia. Normal liver spleen pancreas and gallbladder. Circumscribed 1 cm mass left adrenal gland probably a cyst or adenoma. There is a cyst identified at right kidney measuring 2.2 cm. No calculus or hydronephrosis. Normal bladder. Prostate measures 3.9 x 5.3 cm. No free intraperitoneal fluid or air. No evidence of adenopathy. Normal aorta. Normal appendix. No evidence of diverticulitis. Partially decompressed colon with minimal contrast in the colon. Impression: Left adrenal adenoma or cyst. Cyst in right kidney. Enlarged prostate. Transcribed By: PTP Dictated By: PIPPA RUBY MD Electronically Authenticated By: PIPPA RUBY MD Signed Date/Time: 04/08/18 7063 - Medical Decision Making Patient is a 58-year-old male that presents with nausea vomiting. Patient found to have extremely elevated resistant blood pressure. Patient was placed on a nicardipine drip during ER stay. Patient will be admitted to the hospitalist service for further evaluation and treatment. - Differential Diagnosis htn urgency. n/v. sbo. Gastroenteritis Critical Care Time: Yes Critical care attestation.: If time is entered above; I have spent that time in minutes in the direct care of this critically ill patient, excluding procedure time. Critical Care Time: 35 minutes for cc time. ED Disposition Clinical Impression: Metabolic alkalosis, Hypertensive urgency, malignant, Diabetes mellitus with hyperglycemia, Low serum potassium level Intractable nausea and vomiting Qualifiers: Vomiting type: unspecified Qualified Code(s): R11.2 - Nausea with vomiting, unspecified Disposition: DC-09 OP ADMIT IP TO THIS HOSP Is pt being admited?: Yes Does the pt Need Aspirin: No Condition: Critical Time of Disposition: 10:37
[2018-04-08] MEDS ORDERED: CATAPRES ONE (08:33)
[2018-04-08] MEDS ORDERED: ZOFRAN ONE (08:33)
[2018-04-08] MEDS ORDERED: ZOFRAN IV ONE (08:33)
[2018-04-08] MEDS ORDERED: CATAPRES PO ONE (08:33)
[2018-04-08] MEDS ORDERED: NACL 0.9% 1000 ML 1,000 ML IV ONE (09:26)
[2018-04-08] MEDS ORDERED: APRESOLINE IV ONE (09:32)
[2018-04-08] MEDS ORDERED: APRESOLINE ONE (09:35)
--- NOTE | 2018-04-08 09:59 | Cat Scan Report ---
CT scan of abdomen and pelvis without IV contrast: History: Nausea and vomiting. Findings: Normal lung bases. No pleural pericardial effusion. Small sliding hiatal hernia. Normal liver spleen pancreas and gallbladder. Circumscribed 1 cm mass left adrenal gland probably a cyst or adenoma. There is a cyst identified at right kidney measuring 2.2 cm. No calculus or hydronephrosis. Normal bladder. Prostate measures 3.9 x 5.3 cm. No free intraperitoneal fluid or air. No evidence of adenopathy. Normal aorta. Normal appendix. No evidence of diverticulitis. Partially decompressed colon with minimal contrast in the colon. Impression: Left adrenal adenoma or cyst. Cyst in right kidney. Enlarged prostate.
[2018-04-08] MEDS: CARDENE 50 MG in NACL 0.9% 250ML 230 ML IV SCH ×2 (10:50→18:57)
[2018-04-08 10:56] LABS: Bilirubin,Urine NEG (Negative); Blood,Urine NEG (Negative); Color,Urine Yellow (Yellow); Mucus,Urine 2+ /HPF; Urobilinogen,Urine < 2.0 mg/dL (<2.0)
[2018-04-08] MEDS ORDERED: SODIUM CHLORIDE FLUSH SYRINGE 10 ML IV PRN (12:00)
[2018-04-08] MEDS ORDERED: TYLENOL PO PRN (12:00)
[2018-04-08] MEDS ORDERED: D50W (25GM) Syringe IV PRN ×2 (12:00→12:06)
[2018-04-08] MEDS ORDERED: MILK OF MAGNESIA PO PRN (12:00)
[2018-04-08] MEDS ORDERED: AMBIEN PO PRN (12:00)
--- NOTE | 2018-04-08 17:47 | History and Physical Report ---
History of Present Illness Date of examination: 04/08/18 Date of admission: 04/08/18 12:00 Chief complaint: Dizziness History of present illness: Patient is a 58-year-old -[place] male with history of hypertension on no medication who presented to the ED on account of one week history of dizziness. He has associated nausea with vomiting times multiple episodes and presyncope. He denies headaches, or loss of consciousness. No chest pain, shortness of breath, palpitation, leg swelling, cough, fever or chills. No abdominal pain, constipation, diarrhea, dysuria or frequency. Past History Past Medical History: hypertension Past Surgical History: Other (bilateral knee surgery) Social history: other (he denies tobacco, alcohol or illicit drug use) Family history: hypertension Medications and Allergies Allergies Allergy/AdvReac Type Severity Reaction Status Date / Time No Known Allergies Allergy Unverified 04/30/17 11:27 Home Medications Medication Instructions Recorded Confirmed Last Taken Type No Known Home Medications [No 04/08/18 04/08/18 Unknown History Reported Home Medications] Active Meds: Active Medications Acetaminophen (Tylenol) 650 mg PO Q4H PRN PRN Reason: Pain MILD(1-3)/Fever >100.5/VERA Acetaminophen/Hydrocodone Bitart ([place] 5/325) 1 each PO Q6H PRN PRN Reason: Pain, Moderate (4-6) Dextrose (D50w (25gm) Syringe) 50 ml IV PRN PRN PRN Reason: Hypoglycemia Dextrose (D50w (25gm) Syringe) 50 ml IV PRN PRN PRN Reason: Hypoglycemia Docusate Sodium (Colace) 100 mg PO BID TODD Enoxaparin Sodium (Lovenox) 40 mg SUB-Q QDAY TODD Nicardipine HCl 50 mg/ Sodium (Chloride) 250 mls @ 25 mls/hr IV TITR TODD; Protocol Last Admin: 04/08/18 10:50 Dose: 5 mg/hr, 25 mls/hr Insulin Glargine (Lantus) 15 units SUB-Q QHS TODD Insulin Human Lispro (Humalog) 0 unit SUB-Q ACHS TODD; Protocol Magnesium Hydroxide (Milk Of Magnesia) 30 ml PO Q4H PRN PRN Reason: Constipation Ondansetron HCl (Zofran) 4 mg IV Q8H PRN PRN Reason: Nausea And Vomiting Sodium Chloride (Sodium Chloride Flush Syringe 10 Ml) 10 ml IV BID TODD Sodium Chloride (Sodium Chloride Flush Syringe 10 Ml) 10 ml IV PRN PRN PRN Reason: LINE FLUSH Zolpidem Tartrate (Ambien) 5 mg PO QHS PRN PRN Reason: Insomnia Review of Systems All systems: negative (Except as documented in the HPI, all other systems were reviewed and negative) Exam - Constitutional Vitals: Temp Pulse Resp BP Pulse Ox 98.0 F 89 18 167/104 100 04/08/18 09:11 04/08/18 16:13 04/08/18 16:13 04/08/18 16:13 04/08/18 16:13 General appearance: Present: no acute distress, well-nourished - EENT Eyes: Present: PERRL, EOM intact ENT: hearing intact, clear oral mucosa - Neck Neck: Present: supple, normal ROM - Respiratory Respiratory effort: normal Respiratory: bilateral: CTA - Cardiovascular Rhythm: regular Heart Sounds: Present: S1 & S2. Absent: rub, click - Extremities Extremities: No edema Peripheral Pulses: within normal limits - Abdominal General gastrointestinal: Present: soft, non-tender, non-distended, normal bowel sounds - Integumentary Integumentary: Present: clear, warm, dry - Musculoskeletal Musculoskeletal: gait normal, strength equal bilaterally - Psychiatric Psychiatric: appropriate mood/affect, intact judgment & insight - Neurologic Neurologic: CNII-XII intact, moves all extremities Results - Labs CBC & Chem 7: 04/08/18 07:33 04/08/18 07:38 Labs: Laboratory Last Values WBC 19.1 K/mm3 (4.5-11.0) H 04/08/18 07:33 RBC 5.27 M/mm3 (3.65-5.03) H 04/08/18 07:33 Hgb 15.4 gm/dl (11.8-15.2) H 04/08/18 07:33 Hct 47.4 % (35.5-45.6) H 04/08/18 07:33 MCV 90 fl (84-94) 04/08/18 07:33 MCH 29 pg (28-32) 04/08/18 07:33 MCHC 33 % (32-34) 04/08/18 07:33 RDW 14.3 % (13.2-15.2) 04/08/18 07:33 Plt Count 285 K/mm3 (140-440) 04/08/18 07:33 Lymph % (Auto) 17.1 % (13.4-35.0) 04/08/18 07:33 [place] % (Auto) 6.1 % (0.0-7.3) 04/08/18 07:33 Eos % (Auto) 0.4 % (0.0-4.3) 04/08/18 07:33 Baso % (Auto) 0.5 % (0.0-1.8) 04/08/18 07:33 Lymph # 3.3 K/mm3 (1.2-5.4) 04/08/18 07:33 [place] # 1.2 K/mm3 (0.0-0.8) H 04/08/18 07:33 Eos # 0.1 K/mm3 (0.0-0.4) 04/08/18 07:33 Baso # 0.1 K/mm3 (0.0-0.1) 04/08/18 07:33 Seg Neutrophils % 75.9 % (40.0-70.0) H 04/08/18 07:33 Seg Neutrophils # 14.5 K/mm3 (1.8-7.7) H 04/08/18 07:33 VBG pH 7.443 (7.320-7.420) H 04/08/18 07:38 Sodium 138 mmol/L (137-145) 04/08/18 07:38 Potassium 3.5 mmol/L (3.6-5.0) L 04/08/18 07:38 Chloride 98.3 mmol/L (98-107) 04/08/18 07:38 Carbon Dioxide 23 mmol/L (22-30) 04/08/18 07:38 Anion Gap 20 mmol/L 04/08/18 07:38 BUN 15 mg/dL (9-20) 04/08/18 07:38 Creatinine 1.1 mg/dL (0.8-1.5) 04/08/18 07:38 Estimated GFR > 60 ml/min 04/08/18 07:38 BUN/Creatinine Ratio 14 % 04/08/18 07:38 Glucose 281 mg/dL (75-100) H 04/08/18 07:38 POC Glucose 237 (70-105) H 04/08/18 07:14 Lactic Acid 2.00 mmol/L (0.7-2.0) 04/08/18 09:31 Calcium 9.7 mg/dL (8.4-10.2) 04/08/18 07:38 Troponin T < 0.010 ng/mL (0.00-0.029) 04/08/18 07:38 Urine Color Yellow (Yellow) 04/08/18 10:05 Urine Turbidity Slightly-cloudy (Clear) 04/08/18 10:05 Urine pH 5.0 (5.0-7.0) 04/08/18 10:05 Ur Specific [place] 1.029 (1.003-1.030) 04/08/18 10:05 Urine Protein 100 mg/dl mg/dL (Negative) 04/08/18 10:05 Urine Glucose (UA) >=500 mg/dL (Negative) 04/08/18 10:05 Urine Ketones 20 mg/dL (Negative) 04/08/18 10:05 Urine Blood Neg (Negative) 04/08/18 10:05 Urine Nitrite Neg (Negative) 04/08/18 10:05 Urine Bilirubin Neg (Negative) 04/08/18 10:05 Urine Urobilinogen < 2.0 mg/dL (<2.0) 04/08/18 10:05 Ur Leukocyte Esterase Neg (Negative) 04/08/18 10:05 Urine WBC (Auto) 1.0 /HPF (0.0-6.0) 04/08/18 10:05 Urine RBC (Auto) 1.0 /HPF (0.0-6.0) 04/08/18 10:05 U Epithel Cells (Auto) < 1.0 /HPF (0-13.0) 04/08/18 10:05 Urine Mucus 2+ /HPF 04/08/18 10:05 Assessment and Plan Assessment and plan: Hypertensive emergency -Admit to the ICU -Continue nicardipine drip SIRS without exact source of infection -will do blood cultures -will hold off on antibiotic for now -Patient is afebrile, will recheck CBC level in a.m. Intractable nausea and vomiting -on antiemetics Dizziness -will do head CT scan for further eval due to the markedly elevated BP Hyperglycemia -will check hba1c level Hypokalemia -will replete and monitor level -will check mg level Prophylaxis -Famotidine and Lovenox I spent 45 minutes providing critical care to this seriously ill patient who requires frequent reassessment of his cardiovascular status Disposition: For discharge when medically stable
[2018-04-08] MEDS: HumaLOG SUB-Q SCH ×2 (17:49→22:03)
[2018-04-08] MEDS ORDERED: HumaLOG SUB-Q ONE ×2 (17:49→22:02)
[2018-04-08] MEDS ORDERED: K-DUR PO SCH ×2 (18:00)
[2018-04-08] MEDS ORDERED: NS 0.45/KCL 20MEQ 20 MEQ/1,000 ML BAG IV SCH (18:00)
[2018-04-08] MEDS ORDERED: K-DUR PO ONE (18:01)
[2018-04-08] MEDS: PEPCID IV SCH (18:05)
--- NOTE | 2018-04-08 19:59 | Cat Scan Report ---
FINAL REPORT EXAM: CT HEAD/BRAIN WO CON HISTORY: HYPERTENSIVE EMERGENCY TECHNIQUE: Standard unenhanced CT of the head at 5.0 millimeter axial increments. PRIORS: None. FINDINGS: The ventricular system is normal in size and configuration. There is no evidence for parenchymal volume loss. There is no evidence for mass lesion, mass effect, midline shift, acute intracranial hemorrhage, or acute ischemia/ infarction. No evidence for acute skull fracture is seen. No abnormality in the overlying scalp soft tissues is seen. Visualized paranasal sinuses are clear. IMPRESSION: Negative CT of the head. No acute intracranial process noted.
[2018-04-08] MEDS: COLACE PO SCH (21:41)
[2018-04-08] MEDS: SODIUM CHLORIDE FLUSH SYRINGE 10 ML IV SCH (21:42)
[2018-04-08] MEDS ORDERED: LANTUS SUB-Q SCH (22:00)
[2018-04-08] MEDS ORDERED: NORMODYNE ONE (22:00)
[2018-04-08] MEDS: NORMODYNE PO SCH (22:02)
[2018-04-09] MEDS: ZOFRAN IV PRN ×2 (01:47→08:18)
[2018-04-09 06:21] LABS: Basophils % (Auto) 0.3 % (0.0-1.8); Hematocrit 42.7 % (35.5-45.6); Hemoglobin 14.3 gm/dl (11.8-15.2); Lymphocytes # (Auto) 1.4 K/mm3 (1.2-5.4); Lymphocytes % (Auto) 7.1 % (13.4-35.0); Mean Corpuscular HGB Conc 33 % (32-34); Mean Corpuscular Hemoglobin 29 pg (28-32); Mean Corpuscular Volume 88 fl (84-94); Monocytes % (Auto) 5.5 % (0.0-7.3); Platelet Count 225 K/mm3 (140-440); Red Blood Count 4.84 M/mm3 (3.65-5.03); Red Cell Distribution Width 14.4 % (13.2-15.2)
[2018-04-09 07:14] LABS: BUN/Creatinine Ratio 16; Blood Urea Nitrogen 18 mg/dL (9-20); Calcium 9.4 mg/dL (8.4-10.2); Hemolysis Index 4
[2018-04-09] MEDS: HumaLOG SUB-Q SCH ×4 (08:15→22:47)
[2018-04-09] MEDS: COLACE PO SCH ×2 (10:46→22:46)
[2018-04-09] MEDS: LOVENOX SUB-Q SCH (10:46)
[2018-04-09] MEDS: SODIUM CHLORIDE FLUSH SYRINGE 10 ML IV SCH ×2 (10:46→22:47)
[2018-04-09] MEDS: NORVASC PO SCH (10:46)
[2018-04-09] MEDS: PEPCID IV SCH (10:46)
[2018-04-09] MEDS: NORMODYNE PO SCH ×2 (10:46→22:46)
[2018-04-09] MEDS: LEVAQUIN 750MG/150ML 750 MG/150 ML BAG IV SCH (12:15)
[2018-04-09] MEDS: ANTIVERT PO PRN (12:16)
--- NOTE | 2018-04-09 14:28 | Progress Note ---
Assessment and Plan Assessment and plan: Hypertensive emergency due to medication non-compliance, improved -off nicardipine drip -cont labetalol and amlodipine, adjust as needed SIRS without exact source of infection -WBC level still elevated, will start empiric antibiotic -UA neg, blood cultures pending DM2 with Hyperglycemia -will increase Lantus and cont SSI -hba1c level: 10.2 Dizziness and blurry vision -probably related to uncontrolled DM and HTN -Head CT scan neg -will consider neurology consult if persist Intractable nausea and vomiting -resolved -CT abdomen/pelvix showed LT adrenal adenoma or cyst, RT kidney cyst and enlarged prostate Hypokalemia, resolved Hx of non-compliance -pt counseled Disposition: d/c pt when medically stable History Interval history: pt complained of blurry vision with persistent dizziness Hospitalist Physical - Constitutional Vitals: Temp Pulse Resp BP Pulse Ox 98.5 F 80 18 150/98 100 04/09/18 12:57 04/09/18 12:57 04/09/18 12:57 04/09/18 12:57 04/09/18 12:57 General appearance: Present: no acute distress, well-nourished - EENT Eyes: Present: PERRL, EOM intact ENT: hearing intact, clear oral mucosa - Neck Neck: Present: supple - Respiratory Respiratory effort: normal Respiratory: bilateral: CTA - Cardiovascular Rhythm: regular Heart Sounds: Present: S1 & S2 - Extremities Extremities: No edema - Abdominal General gastrointestinal: soft, non-tender, normal bowel sounds - Neurologic Neurologic: CNII-XII intact Results - Labs CBC & Chem 7: 04/09/18 05:12 04/09/18 05:12 Labs: Laboratory Last Values WBC 19.0 K/mm3 (4.5-11.0) H 04/09/18 05:12 RBC 4.84 M/mm3 (3.65-5.03) 04/09/18 05:12 Hgb 14.3 gm/dl (11.8-15.2) 04/09/18 05:12 Hct 42.7 % (35.5-45.6) 04/09/18 05:12 MCV 88 fl (84-94) 04/09/18 05:12 MCH 29 pg (28-32) 04/09/18 05:12 MCHC 33 % (32-34) 04/09/18 05:12 RDW 14.4 % (13.2-15.2) 04/09/18 05:12 Plt Count 225 K/mm3 (140-440) 04/09/18 05:12 Lymph % (Auto) 7.1 % (13.4-35.0) L 04/09/18 05:12 [place] % (Auto) 5.5 % (0.0-7.3) 04/09/18 05:12 Eos % (Auto) 0.0 % (0.0-4.3) 04/09/18 05:12 Baso % (Auto) 0.3 % (0.0-1.8) 04/09/18 05:12 Lymph # 1.4 K/mm3 (1.2-5.4) 04/09/18 05:12 [place] # 1.0 K/mm3 (0.0-0.8) H 04/09/18 05:12 Eos # 0.0 K/mm3 (0.0-0.4) 04/09/18 05:12 Baso # 0.0 K/mm3 (0.0-0.1) 04/09/18 05:12 Seg Neutrophils % 87.1 % (40.0-70.0) H 04/09/18 05:12 Seg Neutrophils # 16.6 K/mm3 (1.8-7.7) H 04/09/18 05:12 VBG pH 7.443 (7.320-7.420) H 04/08/18 07:38 Sodium 144 mmol/L (137-145) 04/09/18 05:12 Potassium 4.1 mmol/L (3.6-5.0) 04/09/18 05:12 Chloride 101.8 mmol/L (98-107) 04/09/18 05:12 Carbon Dioxide 22 mmol/L (22-30) 04/09/18 05:12 Anion Gap 24 mmol/L 04/09/18 05:12 BUN 18 mg/dL (9-20) 04/09/18 05:12 Creatinine 1.1 mg/dL (0.8-1.5) 04/09/18 05:12 Estimated GFR > 60 ml/min 04/09/18 05:12 BUN/Creatinine Ratio 16 % 04/09/18 05:12 Glucose 236 mg/dL (75-100) H 04/09/18 05:12 POC Glucose 185 (70-105) H 04/09/18 12:55 Hemoglobin A1c 10.2 % (4-6) H 04/09/18 05:12 Lactic Acid 2.00 mmol/L (0.7-2.0) 04/08/18 09:31 Calcium 9.4 mg/dL (8.4-10.2) 04/09/18 05:12 Magnesium 1.90 mg/dL (1.7-2.3) 04/09/18 05:12 Troponin T < 0.010 ng/mL (0.00-0.029) 04/08/18 07:38 Urine Color Yellow (Yellow) 04/08/18 10:05 Urine Turbidity Slightly-cloudy (Clear) 04/08/18 10:05 Urine pH 5.0 (5.0-7.0) 04/08/18 10:05 Ur Specific [place] 1.029 (1.003-1.030) 04/08/18 10:05 Urine Protein 100 mg/dl mg/dL (Negative) 04/08/18 10:05 Urine Glucose (UA) >=500 mg/dL (Negative) 04/08/18 10:05 Urine Ketones 20 mg/dL (Negative) 04/08/18 10:05 Urine Blood Neg (Negative) 04/08/18 10:05 Urine Nitrite Neg (Negative) 04/08/18 10:05 Urine Bilirubin Neg (Negative) 04/08/18 10:05 Urine Urobilinogen < 2.0 mg/dL (<2.0) 04/08/18 10:05 Ur Leukocyte Esterase Neg (Negative) 04/08/18 10:05 Urine WBC (Auto) 1.0 /HPF (0.0-6.0) 04/08/18 10:05 Urine RBC (Auto) 1.0 /HPF (0.0-6.0) 04/08/18 10:05 U Epithel Cells (Auto) < 1.0 /HPF (0-13.0) 04/08/18 10:05 Urine Mucus 2+ /HPF 04/08/18 10:05
[2018-04-09] MEDS: APRESOLINE IV PRN (18:21)
--- NOTE | 2018-04-09 21:27 | Consultation ---
Past History Past Medical History: hypertension Past Surgical History: Other (bilateral knee surgery) Social history: other (he denies tobacco, alcohol or illicit drug use) Family history: hypertension Medications and Allergies Allergies Allergy/AdvReac Type Severity Reaction Status Date / Time No Known Allergies Allergy Unverified 04/30/17 11:27 Home Medications Medication Instructions Recorded Confirmed Last Taken Type No Known Home Medications [No 04/08/18 04/08/18 Unknown History Reported Home Medications] Active Meds: Active Medications Acetaminophen (Tylenol) 650 mg PO Q4H PRN PRN Reason: Pain MILD(1-3)/Fever >100.5/VERA Acetaminophen/Hydrocodone Bitart ([place] 5/325) 1 each PO Q6H PRN PRN Reason: Pain, Moderate (4-6) Amlodipine Besylate (Norvasc) 10 mg PO QDAY [facility] Last Admin: 04/09/18 10:46 Dose: 10 mg Dextrose (D50w (25gm) Syringe) 50 ml IV PRN PRN PRN Reason: Hypoglycemia Dextrose (D50w (25gm) Syringe) 50 ml IV PRN PRN PRN Reason: Hypoglycemia Docusate Sodium (Colace) 100 mg PO BID [facility] Last Admin: 04/09/18 10:46 Dose: 100 mg Enoxaparin Sodium (Lovenox) 40 mg SUB-Q QDAY [facility] Last Admin: 04/09/18 10:46 Dose: 40 mg Famotidine (Pepcid) 20 mg IV QDAY [facility] Last Admin: 04/09/18 10:46 Dose: 20 mg Hydralazine HCl (Apresoline) 10 mg IV Q4H PRN PRN Reason: SBP <160 OR DBP <90 Last Admin: 04/09/18 18:21 Dose: 10 mg Levofloxacin/Dextrose (Levaquin 750mg/150ml) 750 mg in 150 mls @ 100 mls/hr IV Q24HR [facility]; Protocol Last Admin: 04/09/18 12:15 Dose: 100 mls/hr Insulin Glargine (Lantus) 20 units SUB-Q QHS [facility] Insulin Human Lispro (Humalog) 0 unit SUB-Q ACHS [facility]; Protocol Last Admin: 04/09/18 17:09 Dose: 3 unit Labetalol HCl (Normodyne) 200 mg PO BID [facility] Last Admin: 04/09/18 10:46 Dose: 200 mg Magnesium Hydroxide (Milk Of Magnesia) 30 ml PO Q4H PRN PRN Reason: Constipation Meclizine HCl (Antivert) 25 mg PO Q6HR PRN PRN Reason: Vertigo Last Admin: 04/09/18 12:16 Dose: 25 mg Ondansetron HCl (Zofran) 4 mg IV Q8H PRN PRN Reason: Nausea And Vomiting Last Admin: 04/09/18 08:18 Dose: 4 mg Sodium Chloride (Sodium Chloride Flush Syringe 10 Ml) 10 ml IV BID [facility] Last Admin: 04/09/18 10:46 Dose: 10 ml Sodium Chloride (Sodium Chloride Flush Syringe 10 Ml) 10 ml IV PRN PRN PRN Reason: LINE FLUSH Zolpidem Tartrate (Ambien) 5 mg PO QHS PRN PRN Reason: Insomnia Physical Examination Vital signs: Vital Signs Temp Pulse Resp BP Pulse Ox 97.5 F L 95 H 28 H 225/155 100 04/08/18 07:19 04/08/18 07:19 04/08/18 07:19 04/08/18 07:19 04/08/18 07:19 Results - Laboratory Findings CBC and BMP: 04/09/18 05:12 04/09/18 05:12 Abnormal lab findings: Abnormal Labs 04/08/18 04/08/18 04/08/18 07:14 07:33 07:38 WBC 19.1 H RBC 5.27 H Hgb 15.4 H Hct 47.4 H Lymph % (Auto) [place] # 1.2 H Seg Neutrophils % 75.9 H Seg Neutrophils # 14.5 H VBG pH Potassium 3.5 L Glucose 281 H POC Glucose 237 H Hemoglobin A1c 04/08/18 04/08/18 04/08/18 07:38 17:40 21:47 WBC RBC Hgb Hct Lymph % (Auto) [place] # Seg Neutrophils % Seg Neutrophils # VBG pH 7.443 H Potassium Glucose POC Glucose 214 H 236 H Hemoglobin A1c 04/09/18 04/09/18 04/09/18 05:12 05:12 05:12 WBC 19.0 H RBC Hgb Hct Lymph % (Auto) 7.1 L [place] # 1.0 H Seg Neutrophils % 87.1 H Seg Neutrophils # 16.6 H VBG pH Potassium Glucose 236 H POC Glucose Hemoglobin A1c 10.2 H 09/01/18 09/01/18 09/01/18 06:48 12:55 15:28 WBC RBC Hgb Hct Lymph % (Auto) [place] # Seg Neutrophils % Seg Neutrophils # VBG pH Potassium Glucose POC Glucose 223 H 185 H 225 H Hemoglobin A1c
[2018-04-09] MEDS: LANTUS SUB-Q SCH (22:48)
[2018-04-10 04:24] LABS: Basophils # (Auto) 0.1 K/mm3 (0.0-0.1); Basophils % (Auto) 0.5 % (0.0-1.8); Eosinophils # (Auto) 0.1 K/mm3 (0.0-0.4); Eosinophils % (Auto) 0.6 % (0.0-4.3); Hematocrit 42.7 % (35.5-45.6); Lymphocytes # (Auto) 1.8 K/mm3 (1.2-5.4); Lymphocytes % (Auto) 12.3 % (13.4-35.0); Mean Corpuscular HGB Conc 33 % (32-34); Mean Corpuscular Hemoglobin 29 pg (28-32); Mean Corpuscular Volume 89 fl (84-94); Monocytes # (Auto) 0.9 K/mm3 (0.0-0.8); Monocytes % (Auto) 6.5 % (0.0-7.3); Platelet Count 196 K/mm3 (140-440); Red Blood Count 4.78 M/mm3 (3.65-5.03); Red Cell Distribution Width 14.3 % (13.2-15.2)
[2018-04-10] MEDS: LOVENOX SUB-Q SCH (10:37)
[2018-04-10] MEDS: NORMODYNE PO SCH ×3 (10:37→20:08)
[2018-04-10] MEDS: ANTIVERT PO PRN ×2 (10:37→22:29)
[2018-04-10] MEDS: COLACE PO SCH ×2 (10:37→22:29)
[2018-04-10] MEDS: PEPCID IV SCH (10:38)
[2018-04-10] MEDS: SODIUM CHLORIDE FLUSH SYRINGE 10 ML IV SCH ×2 (10:38→22:30)
[2018-04-10] MEDS: NORVASC PO SCH (10:38)
[2018-04-10] MEDS: LEVAQUIN 750MG/150ML 750 MG/150 ML BAG IV SCH (10:39)
[2018-04-10] MEDS: HumaLOG SUB-Q SCH ×4 (10:39→22:29)
--- NOTE | 2018-04-10 12:29 | Progress Note ---
Assessment and Plan Assessment and plan: Hypertensive emergency due to medication non-compliance -off nicardipine drip -BP still elevated -will increase labetalol and cont amlodipine -cont PRN hydralazine SIRS without exact source of infection -WBC level trending down, will monitor -cont empiric iv antibiotic -UA neg, blood cultures neg so far DM2 -BG improved -cont current dose of Lantus and SSI, adjust as needed -hba1c level: 10.2 Dizziness and double vision -probably related to uncontrolled DM and HTN -Head CT scan neg -will consult neurology Intractable nausea and vomiting -resolved -CT abdomen/pelvix showed LT adrenal adenoma or cyst, RT kidney cyst and enlarged prostate Hypokalemia, resolved Hx of non-compliance -pt counseled Disposition: d/c pt when medically stable History Interval history: Patient continues to complain of dizziness with double vision Hospitalist Physical - Constitutional Vitals: Temp Pulse Resp BP Pulse Ox 97.4 F L 78 16 167/110 100 04/10/18 08:30 04/10/18 10:38 04/10/18 08:30 04/10/18 10:38 04/10/18 08:30 General appearance: Present: no acute distress, well-nourished - EENT Eyes: Present: PERRL, EOM intact ENT: hearing intact, clear oral mucosa - Neck Neck: Present: supple - Respiratory Respiratory effort: normal Respiratory: bilateral: CTA - Extremities Extremities: No edema - Abdominal General gastrointestinal: soft, non-tender, normal bowel sounds - Neurologic Neurologic: CNII-XII intact Results - Labs CBC & Chem 7: 04/10/18 04:11 04/09/18 05:12 Labs: Laboratory Last Values WBC 14.3 K/mm3 (4.5-11.0) H 04/10/18 04:11 RBC 4.78 M/mm3 (3.65-5.03) 04/10/18 04:11 Hgb 14.0 gm/dl (11.8-15.2) 04/10/18 04:11 Hct 42.7 % (35.5-45.6) 04/10/18 04:11 MCV 89 fl (84-94) 04/10/18 04:11 MCH 29 pg (28-32) 04/10/18 04:11 MCHC 33 % (32-34) 04/10/18 04:11 RDW 14.3 % (13.2-15.2) 04/10/18 04:11 Plt Count 196 K/mm3 (140-440) 04/10/18 04:11 Lymph % (Auto) 12.3 % (13.4-35.0) L 04/10/18 04:11 [place] % (Auto) 6.5 % (0.0-7.3) 04/10/18 04:11 Eos % (Auto) 0.6 % (0.0-4.3) 04/10/18 04:11 Baso % (Auto) 0.5 % (0.0-1.8) 04/10/18 04:11 Lymph # 1.8 K/mm3 (1.2-5.4) 04/10/18 04:11 [place] # 0.9 K/mm3 (0.0-0.8) H 04/10/18 04:11 Eos # 0.1 K/mm3 (0.0-0.4) 04/10/18 04:11 Baso # 0.1 K/mm3 (0.0-0.1) 04/10/18 04:11 Seg Neutrophils % 80.1 % (40.0-70.0) H 04/10/18 04:11 Seg Neutrophils # 11.5 K/mm3 (1.8-7.7) H 04/10/18 04:11 VBG pH 7.443 (7.320-7.420) H 04/08/18 07:38 Sodium 144 mmol/L (137-145) 04/09/18 05:12 Potassium 4.1 mmol/L (3.6-5.0) 04/09/18 05:12 Chloride 101.8 mmol/L (98-107) 04/09/18 05:12 Carbon Dioxide 22 mmol/L (22-30) 04/09/18 05:12 Anion Gap 24 mmol/L 04/09/18 05:12 BUN 18 mg/dL (9-20) 04/09/18 05:12 Creatinine 1.1 mg/dL (0.8-1.5) 04/09/18 05:12 Estimated GFR > 60 ml/min 04/09/18 05:12 BUN/Creatinine Ratio 16 % 04/09/18 05:12 Glucose 236 mg/dL (75-100) H 04/09/18 05:12 POC Glucose 170 (70-105) H 04/10/18 05:26 Hemoglobin A1c 10.2 % (4-6) H 04/09/18 05:12 Lactic Acid 2.00 mmol/L (0.7-2.0) 04/08/18 09:31 Calcium 9.4 mg/dL (8.4-10.2) 04/09/18 05:12 Magnesium 2.00 mg/dL (1.7-2.3) 04/10/18 04:11 Troponin T < 0.010 ng/mL (0.00-0.029) 04/08/18 07:38 Urine Color Yellow (Yellow) 04/08/18 10:05 Urine Turbidity Slightly-cloudy (Clear) 04/08/18 10:05 Urine pH 5.0 (5.0-7.0) 04/08/18 10:05 Ur Specific [place] 1.029 (1.003-1.030) 04/08/18 10:05 Urine Protein 100 mg/dl mg/dL (Negative) 04/08/18 10:05 Urine Glucose (UA) >=500 mg/dL (Negative) 04/08/18 10:05 Urine Ketones 20 mg/dL (Negative) 04/08/18 10:05 Urine Blood Neg (Negative) 04/08/18 10:05 Urine Nitrite Neg (Negative) 04/08/18 10:05 Urine Bilirubin Neg (Negative) 04/08/18 10:05 Urine Urobilinogen < 2.0 mg/dL (<2.0) 04/08/18 10:05 Ur Leukocyte Esterase Neg (Negative) 04/08/18 10:05 Urine WBC (Auto) 1.0 /HPF (0.0-6.0) 04/08/18 10:05 Urine RBC (Auto) 1.0 /HPF (0.0-6.0) 04/08/18 10:05 U Epithel Cells (Auto) < 1.0 /HPF (0-13.0) 04/08/18 10:05 Urine Mucus 2+ /HPF 04/08/18 10:05
--- NOTE | 2018-04-10 13:23 | Progress Note ---
Assessment and Plan - Patient Problems (1) Obesity Current Visit: Yes Status: Acute (2) Non-compliance Current Visit: Yes Status: Acute (3) Diabetes mellitus with hyperglycemia Current Visit: Yes Status: Acute (4) Hypertensive urgency, malignant Current Visit: Yes Status: Acute (5) Low serum potassium level Current Visit: Yes Status: Acute (6) Headache Current Visit: No Status: Acute Subjective Interval history: blurry vision improved Objective Vital Signs - 12hr 04/10/18 04/10/18 04/10/18 05:23 08:30 10:37 Temperature 97.4 F L 97.4 F L Pulse Rate 84 78 78 Respiratory 18 16 Rate Blood Pressure 154/103 167/110 167/110 O2 Sat by Pulse 99 100 Oximetry 04/10/18 04/10/18 10:38 12:34 Temperature 97.4 F L Pulse Rate 78 87 Respiratory 18 Rate Blood Pressure 167/110 172/110 O2 Sat by Pulse 100 Oximetry Constitutional: no acute distress Eyes: non-icteric ENT: oropharynx moist Neck: supple Ascultation: Bilateral: clear Cardiovascular: regular rate and rhythm Gastrointestinal: normoactive bowel sounds Integumentary: normal Extremities: no cyanosis, no edema Neurologic: non-focal exam CBC and BMP: 04/10/18 04:11 04/09/18 05:12 Abnormal lab findings: Abnormal Labs 04/08/18 04/08/18 04/08/18 07:14 07:33 07:38 WBC 19.1 H RBC 5.27 H Hgb 15.4 H Hct 47.4 H Lymph % (Auto) [place] # 1.2 H Seg Neutrophils % 75.9 H Seg Neutrophils # 14.5 H VBG pH Potassium 3.5 L Glucose 281 H POC Glucose 237 H Hemoglobin A1c 04/08/18 04/08/18 04/08/18 07:38 17:40 21:47 WBC RBC Hgb Hct Lymph % (Auto) [place] # Seg Neutrophils % Seg Neutrophils # VBG pH 7.443 H Potassium Glucose POC Glucose 214 H 236 H Hemoglobin A1c 04/09/18 04/09/18 04/09/18 05:12 05:12 05:12 WBC 19.0 H RBC Hgb Hct Lymph % (Auto) 7.1 L [place] # 1.0 H Seg Neutrophils % 87.1 H Seg Neutrophils # 16.6 H VBG pH Potassium Glucose 236 H POC Glucose Hemoglobin A1c 10.2 H 04/09/18 04/09/18 04/09/18 06:48 12:55 15:28 WBC RBC Hgb Hct Lymph % (Auto) [place] # Seg Neutrophils % Seg Neutrophils # VBG pH Potassium Glucose POC Glucose 223 H 185 H 225 H Hemoglobin A1c 04/09/18 04/10/18 04/10/18 22:19 04:11 05:26 WBC 14.3 H RBC Hgb Hct Lymph % (Auto) 12.3 L [place] # 0.9 H Seg Neutrophils % 80.1 H Seg Neutrophils # 11.5 H VBG pH Potassium Glucose POC Glucose 161 H 170 H Hemoglobin A1c 04/10/18 12:32 WBC RBC Hgb Hct Lymph % (Auto) [place] # Seg Neutrophils % Seg Neutrophils # VBG pH Potassium Glucose POC Glucose 226 H Hemoglobin A1c
--- NOTE | 2018-04-10 13:45 | Progress Note ---
Subjective Date of service: 04/10/18 Interval history: there is piece of metal in the left ear external so not sure we can do MRI as this is risk issue the CT of head is normal strong suspect brainstem cause of vertigo and diplopia exam show skew deviation of the eyes and mild limb ataxia would like to get mri BUT NOT SURE OFF THE NATURE OF THE METAL WILL TRY TO FIND OUT otherwise suspect small stroke given clinical situation Objective - Vital Sign Vital Signs - 12hr 04/10/18 04/10/18 04/10/18 05:23 08:30 10:37 Temperature 97.4 F L 97.4 F L Pulse Rate 84 78 78 Respiratory 18 16 Rate Blood Pressure 154/103 167/110 167/110 O2 Sat by Pulse 99 100 Oximetry 04/10/18 04/10/18 04/10/18 10:38 12:34 13:24 Temperature 97.4 F L Pulse Rate 78 87 87 Respiratory 18 Rate Blood Pressure 167/110 172/110 172/110 O2 Sat by Pulse 100 Oximetry - Laboratory Findings CBC and BMP: 04/10/18 04:11 04/09/18 05:12 Abnormal Lab Findings: Abnormal Labs 04/08/18 04/08/18 04/08/18 07:14 07:33 07:38 WBC 19.1 H RBC 5.27 H Hgb 15.4 H Hct 47.4 H Lymph % (Auto) [place] # 1.2 H Seg Neutrophils % 75.9 H Seg Neutrophils # 14.5 H VBG pH Potassium 3.5 L Glucose 281 H POC Glucose 237 H Hemoglobin A1c 04/08/18 04/08/18 04/08/18 07:38 17:40 21:47 WBC RBC Hgb Hct Lymph % (Auto) [place] # Seg Neutrophils % Seg Neutrophils # VBG pH 7.443 H Potassium Glucose POC Glucose 214 H 236 H Hemoglobin A1c 04/09/18 04/09/18 04/09/18 05:12 05:12 05:12 WBC 19.0 H RBC Hgb Hct Lymph % (Auto) 7.1 L [place] # 1.0 H Seg Neutrophils % 87.1 H Seg Neutrophils # 16.6 H VBG pH Potassium Glucose 236 H POC Glucose Hemoglobin A1c 10.2 H 04/09/18 04/09/18 04/09/18 06:48 12:55 15:28 WBC RBC Hgb Hct Lymph % (Auto) [place] # Seg Neutrophils % Seg Neutrophils # VBG pH Potassium Glucose POC Glucose 223 H 185 H 225 H Hemoglobin A1c 04/09/18 04/10/18 04/10/18 22:19 04:11 05:26 WBC 14.3 H RBC Hgb Hct Lymph % (Auto) 12.3 L [place] # 0.9 H Seg Neutrophils % 80.1 H Seg Neutrophils # 11.5 H VBG pH Potassium Glucose POC Glucose 161 H 170 H Hemoglobin A1c 04/10/18 12:32 WBC RBC Hgb Hct Lymph % (Auto) [place] # Seg Neutrophils % Seg Neutrophils # VBG pH Potassium Glucose POC Glucose 226 H Hemoglobin A1c
[2018-04-10] MEDS: LANTUS SUB-Q SCH (22:29)
[2018-04-11] MEDS: APRESOLINE IV PRN (06:18)
[2018-04-11 07:31] LABS: Basophils % (Auto) 0.3 % (0.0-1.8); Eosinophils # (Auto) 0.1 K/mm3 (0.0-0.4); Eosinophils % (Auto) 0.7 % (0.0-4.3); Hematocrit 42.2 % (35.5-45.6); Hemoglobin 13.5 gm/dl (11.8-15.2); Lymphocytes # (Auto) 1.5 K/mm3 (1.2-5.4); Lymphocytes % (Auto) 11.8 % (13.4-35.0); Mean Corpuscular HGB Conc 32 % (32-34); Mean Corpuscular Hemoglobin 29 pg (28-32); Mean Corpuscular Volume 90 fl (84-94); Monocytes # (Auto) 0.8 K/mm3 (0.0-0.8); Monocytes % (Auto) 6.4 % (0.0-7.3); Platelet Count 202 K/mm3 (140-440); Red Blood Count 4.67 M/mm3 (3.65-5.03); Red Cell Distribution Width 14.7 % (13.2-15.2)
[2018-04-11] MEDS: HumaLOG SUB-Q SCH ×4 (07:52→23:22)
[2018-04-11] MEDS: NORMODYNE PO SCH ×3 (09:22→21:31)
[2018-04-11] MEDS: PEPCID IV SCH (09:22)
[2018-04-11] MEDS: NORVASC PO SCH (09:22)
[2018-04-11] MEDS: LOVENOX SUB-Q SCH (09:22)
[2018-04-11] MEDS: LEVAQUIN 750MG/150ML 750 MG/150 ML BAG IV SCH (09:22)
[2018-04-11] MEDS: COLACE PO SCH ×2 (09:22→21:31)
[2018-04-11] MEDS: SODIUM CHLORIDE FLUSH SYRINGE 10 ML IV SCH ×2 (09:23→23:23)
[2018-04-11] MEDS: ANTIVERT PO PRN (09:32)
[2018-04-11] MEDS ORDERED: VALIUM PO ONE (13:42)
--- NOTE | 2018-04-11 14:18 | Progress Note ---
Subjective Date of service: 04/11/18 Interval history: ECHO report notes and suspect multiple risk factors for ischemic lacunar stroke Objective - Vital Sign Vital Signs - 12hr 04/11/18 04/11/18 04/11/18 05:12 06:18 08:36 Temperature 98.2 F Pulse Rate 80 80 81 Pulse Rate [ From Monitor] Respiratory 18 Rate Blood Pressure 159/102 159/102 O2 Sat by Pulse 99 Oximetry 04/11/18 04/11/18 04/11/18 09:03 09:35 12:35 Temperature 98.1 F 98.3 F Pulse Rate 87 Pulse Rate [ 87 From Monitor] Respiratory 16 16 16 Rate Blood Pressure 153/102 142/100 O2 Sat by Pulse 99 99 Oximetry - Laboratory Findings CBC and BMP: 04/11/18 06:01 04/09/18 05:12 Abnormal Lab Findings: Abnormal Labs 04/08/18 04/08/18 04/08/18 07:14 07:33 07:38 WBC 19.1 H RBC 5.27 H Hgb 15.4 H Hct 47.4 H Lymph % (Auto) [place] # 1.2 H Seg Neutrophils % 75.9 H Seg Neutrophils # 14.5 H VBG pH Potassium 3.5 L Glucose 281 H POC Glucose 237 H Hemoglobin A1c 04/08/18 04/08/18 04/08/18 07:38 17:40 21:47 WBC RBC Hgb Hct Lymph % (Auto) [place] # Seg Neutrophils % Seg Neutrophils # VBG pH 7.443 H Potassium Glucose POC Glucose 214 H 236 H Hemoglobin A1c 04/09/18 04/09/18 04/09/18 05:12 05:12 05:12 WBC 19.0 H RBC Hgb Hct Lymph % (Auto) 7.1 L [place] # 1.0 H Seg Neutrophils % 87.1 H Seg Neutrophils # 16.6 H VBG pH Potassium Glucose 236 H POC Glucose Hemoglobin A1c 10.2 H 04/09/18 04/09/18 04/09/18 06:48 12:55 15:28 WBC RBC Hgb Hct Lymph % (Auto) [place] # Seg Neutrophils % Seg Neutrophils # VBG pH Potassium Glucose POC Glucose 223 H 185 H 225 H Hemoglobin A1c 04/09/18 04/10/18 04/10/18 22:19 04:11 05:26 WBC 14.3 H RBC Hgb Hct Lymph % (Auto) 12.3 L [place] # 0.9 H Seg Neutrophils % 80.1 H Seg Neutrophils # 11.5 H VBG pH Potassium Glucose POC Glucose 161 H 170 H Hemoglobin A1c 04/10/18 04/10/18 04/10/18 12:32 16:06 21:23 WBC RBC Hgb Hct Lymph % (Auto) [place] # Seg Neutrophils % Seg Neutrophils # VBG pH Potassium Glucose POC Glucose 226 H 170 H 178 H Hemoglobin A1c 04/11/18 04/11/18 04/11/18 05:27 06:01 12:33 WBC 12.9 H RBC Hgb Hct Lymph % (Auto) 11.8 L [place] # Seg Neutrophils % 80.8 H Seg Neutrophils # 10.4 H VBG pH Potassium Glucose POC Glucose 180 H 183 H Hemoglobin A1c
--- NOTE | 2018-04-11 14:47 | Event Note ---
Date: 04/11/18 Patient transferred out of ICU on oral BP regimen. No active pulmonary issues so will sign off for now, but please call w/ questions, or if new issues arise.
--- NOTE | 2018-04-11 16:53 | Progress Note ---
Assessment and Plan Assessment and plan: Hypertensive emergency due to medication non-compliance -off nicardipine drip -BP improving on oral labetalol and cont amlodipine, cont adjustment as needed -cont PRN hydralazine SIRS without exact source of infection -WBC level trending down on empiric iv antibiotic, on day 3/7 -UA neg, blood cultures neg so far DM2 -BG improved -cont current dose of Lantus and SSI, adjust as needed -hba1c level: 10.2 Dizziness and diplopia, exact cause unknown -pt has multiple risk factors for ischemic lacunar stroke -Head CT scan neg -MRI brain unable to be done due to hx of LT ear metal implant -on PRN meclizine and diazepam -neurology following Intractable nausea and vomiting -resolved -CT abdomen/pelvix showed LT adrenal adenoma or cyst, RT kidney cyst and enlarged prostate Hypokalemia, resolved Hx of non-compliance -pt counseled Disposition: d/c pt when medically stable History Interval history: Patient continues to complain of dizziness with double vision Hospitalist Physical - Constitutional Vitals: Temp Pulse Resp BP Pulse Ox 98.3 F 87 16 142/100 99 04/11/18 12:35 04/11/18 09:35 04/11/18 12:35 04/11/18 12:35 04/11/18 09:35 General appearance: Present: no acute distress - EENT Eyes: Present: PERRL, EOM intact ENT: hearing intact, clear oral mucosa - Neck Neck: Present: supple - Respiratory Respiratory effort: normal Respiratory: bilateral: CTA - Cardiovascular Rhythm: regular Heart Sounds: Present: S1 & S2 - Extremities Extremities: No edema - Abdominal General gastrointestinal: soft, non-tender, normal bowel sounds - Neurologic Neurologic: CNII-XII intact Results - Labs CBC & Chem 7: 04/11/18 06:01 04/09/18 05:12 Labs: Laboratory Last Values WBC 12.9 K/mm3 (4.5-11.0) H 04/11/18 06:01 RBC 4.67 M/mm3 (3.65-5.03) 04/11/18 06:01 Hgb 13.5 gm/dl (11.8-15.2) 04/11/18 06:01 Hct 42.2 % (35.5-45.6) 04/11/18 06:01 MCV 90 fl (84-94) 04/11/18 06:01 MCH 29 pg (28-32) 04/11/18 06:01 MCHC 32 % (32-34) 04/11/18 06:01 RDW 14.7 % (13.2-15.2) 04/11/18 06:01 Plt Count 202 K/mm3 (140-440) 04/11/18 06:01 Lymph % (Auto) 11.8 % (13.4-35.0) L 04/11/18 06:01 [place] % (Auto) 6.4 % (0.0-7.3) 04/11/18 06:01 Eos % (Auto) 0.7 % (0.0-4.3) 04/11/18 06:01 Baso % (Auto) 0.3 % (0.0-1.8) 04/11/18 06:01 Lymph # 1.5 K/mm3 (1.2-5.4) 04/11/18 06:01 [place] # 0.8 K/mm3 (0.0-0.8) 04/11/18 06:01 Eos # 0.1 K/mm3 (0.0-0.4) 04/11/18 06:01 Baso # 0.0 K/mm3 (0.0-0.1) 04/11/18 06:01 Seg Neutrophils % 80.8 % (40.0-70.0) H 04/11/18 06:01 Seg Neutrophils # 10.4 K/mm3 (1.8-7.7) H 04/11/18 06:01 VBG pH 7.443 (7.320-7.420) H 04/08/18 07:38 Sodium 144 mmol/L (137-145) 04/09/18 05:12 Potassium 4.1 mmol/L (3.6-5.0) 04/09/18 05:12 Chloride 101.8 mmol/L (98-107) 04/09/18 05:12 Carbon Dioxide 22 mmol/L (22-30) 04/09/18 05:12 Anion Gap 24 mmol/L 04/09/18 05:12 BUN 18 mg/dL (9-20) 04/09/18 05:12 Creatinine 1.1 mg/dL (0.8-1.5) 04/09/18 05:12 Estimated GFR > 60 ml/min 04/09/18 05:12 BUN/Creatinine Ratio 16 % 04/09/18 05:12 Glucose 236 mg/dL (75-100) H 04/09/18 05:12 POC Glucose 183 (70-105) H 04/11/18 12:33 Hemoglobin A1c 10.2 % (4-6) H 04/09/18 05:12 Lactic Acid 2.00 mmol/L (0.7-2.0) 04/08/18 09:31 Calcium 9.4 mg/dL (8.4-10.2) 04/09/18 05:12 Magnesium 2.00 mg/dL (1.7-2.3) 04/10/18 04:11 Troponin T < 0.010 ng/mL (0.00-0.029) 04/08/18 07:38 Urine Color Yellow (Yellow) 04/08/18 10:05 Urine Turbidity Slightly-cloudy (Clear) 04/08/18 10:05 Urine pH 5.0 (5.0-7.0) 04/08/18 10:05 Ur Specific [place] 1.029 (1.003-1.030) 04/08/18 10:05 Urine Protein 100 mg/dl mg/dL (Negative) 04/08/18 10:05 Urine Glucose (UA) >=500 mg/dL (Negative) 04/08/18 10:05 Urine Ketones 20 mg/dL (Negative) 04/08/18 10:05 Urine Blood Neg (Negative) 04/08/18 10:05 Urine Nitrite Neg (Negative) 04/08/18 10:05 Urine Bilirubin Neg (Negative) 04/08/18 10:05 Urine Urobilinogen < 2.0 mg/dL (<2.0) 04/08/18 10:05 Ur Leukocyte Esterase Neg (Negative) 04/08/18 10:05 Urine WBC (Auto) 1.0 /HPF (0.0-6.0) 04/08/18 10:05 Urine RBC (Auto) 1.0 /HPF (0.0-6.0) 04/08/18 10:05 U Epithel Cells (Auto) < 1.0 /HPF (0-13.0) 04/08/18 10:05 Urine Mucus 2+ /HPF 04/08/18 10:05
[2018-04-11] MEDS: LANTUS SUB-Q SCH (21:33)
[2018-04-12] MEDS: APRESOLINE IV PRN ×2 (06:49→20:00)
[2018-04-12 07:48] LABS: Basophils % (Auto) 0.5 % (0.0-1.8); Eosinophils # (Auto) 0.1 K/mm3 (0.0-0.4); Eosinophils % (Auto) 1.3 % (0.0-4.3); Hematocrit 41.2 % (35.5-45.6); Hemoglobin 13.5 gm/dl (11.8-15.2); Lymphocytes # (Auto) 1.6 K/mm3 (1.2-5.4); Lymphocytes % (Auto) 14.7 % (13.4-35.0); Mean Corpuscular HGB Conc 33 % (32-34); Mean Corpuscular Hemoglobin 30 pg (28-32); Mean Corpuscular Volume 91 fl (84-94); Monocytes # (Auto) 0.9 K/mm3 (0.0-0.8); Monocytes % (Auto) 8.1 % (0.0-7.3); Platelet Count 178 K/mm3 (140-440); Red Blood Count 4.52 M/mm3 (3.65-5.03); Red Cell Distribution Width 14.6 % (13.2-15.2)
[2018-04-12] MEDS: NORMODYNE PO SCH ×3 (09:12→20:00)
[2018-04-12] MEDS: PEPCID IV SCH (09:13)
[2018-04-12] MEDS: COLACE PO SCH ×2 (09:13→23:09)
[2018-04-12] MEDS: LOVENOX SUB-Q SCH (09:13)
[2018-04-12] MEDS: NORVASC PO SCH (09:13)
[2018-04-12] MEDS: SODIUM CHLORIDE FLUSH SYRINGE 10 ML IV SCH ×2 (09:14→23:09)
[2018-04-12] MEDS: HumaLOG SUB-Q SCH ×4 (09:23→23:08)
[2018-04-12] MEDS: LEVAQUIN PO SCH (14:14)
[2018-04-12] MEDS: LEVAQUIN 750MG/150ML 750 MG/150 ML BAG IV SCH (14:16)
[2018-04-12] MEDS: VALIUM PO PRN (17:24)
--- NOTE | 2018-04-12 18:26 | Progress Note ---
Subjective Date of service: 04/12/18 Interval history: rerviewed all labs and glucoses still up this likely is basis in part pof the vertigo can not have MRI due to meytal if symptoms persist may rwecommend [address] of head Objective - Vital Sign Vital Signs - 12hr 04/12/18 04/12/18 04/12/18 06:49 07:43 09:12 Temperature 98.1 F Pulse Rate 78 88 78 Respiratory 20 Rate Respiratory Rate [Head] Blood Pressure 160/96 161/93 160/96 O2 Sat by Pulse 97 Oximetry 04/12/18 04/12/18 04/12/18 09:13 10:00 14:14 Temperature Pulse Rate 78 87 89 Respiratory Rate Respiratory 18 Rate [Head] Blood Pressure 160/96 130/80 O2 Sat by Pulse Oximetry - Laboratory Findings CBC and BMP: 04/12/18 06:10 04/09/18 05:12 Abnormal Lab Findings: Abnormal Labs 04/08/18 04/08/18 04/08/18 07:14 07:33 07:38 WBC 19.1 H RBC 5.27 H Hgb 15.4 H Hct 47.4 H Lymph % (Auto) [place] % (Auto) [place] # 1.2 H Seg Neutrophils % 75.9 H Seg Neutrophils # 14.5 H VBG pH Potassium 3.5 L Glucose 281 H POC Glucose 237 H Hemoglobin A1c 04/08/18 04/08/18 04/08/18 07:38 17:40 21:47 WBC RBC Hgb Hct Lymph % (Auto) [place] % (Auto) [place] # Seg Neutrophils % Seg Neutrophils # VBG pH 7.443 H Potassium Glucose POC Glucose 214 H 236 H Hemoglobin A1c 04/09/18 04/09/18 04/09/18 05:12 05:12 05:12 WBC 19.0 H RBC Hgb Hct Lymph % (Auto) 7.1 L [place] % (Auto) [place] # 1.0 H Seg Neutrophils % 87.1 H Seg Neutrophils # 16.6 H VBG pH Potassium Glucose 236 H POC Glucose Hemoglobin A1c 10.2 H 04/09/18 04/09/18 04/09/18 06:48 12:55 15:28 WBC RBC Hgb Hct Lymph % (Auto) [place] % (Auto) [place] # Seg Neutrophils % Seg Neutrophils # VBG pH Potassium Glucose POC Glucose 223 H 185 H 225 H Hemoglobin A1c 04/09/18 04/10/18 04/10/18 22:19 04:11 05:26 WBC 14.3 H RBC Hgb Hct Lymph % (Auto) 12.3 L [place] % (Auto) [place] # 0.9 H Seg Neutrophils % 80.1 H Seg Neutrophils # 11.5 H VBG pH Potassium Glucose POC Glucose 161 H 170 H Hemoglobin A1c 04/10/18 04/10/18 04/10/18 12:32 16:06 21:23 WBC RBC Hgb Hct Lymph % (Auto) [place] % (Auto) [place] # Seg Neutrophils % Seg Neutrophils # VBG pH Potassium Glucose POC Glucose 226 H 170 H 178 H Hemoglobin A1c 04/11/18 04/11/18 04/11/18 05:27 06:01 12:33 WBC 12.9 H RBC Hgb Hct Lymph % (Auto) 11.8 L [place] % (Auto) [place] # Seg Neutrophils % 80.8 H Seg Neutrophils # 10.4 H VBG pH Potassium Glucose POC Glucose 180 H 183 H Hemoglobin A1c 04/11/18 04/11/18 04/12/18 17:17 21:31 06:10 WBC RBC Hgb Hct Lymph % (Auto) [place] % (Auto) 8.1 H [place] # 0.9 H Seg Neutrophils % 75.4 H Seg Neutrophils # 8.2 H VBG pH Potassium Glucose POC Glucose 236 H 240 H Hemoglobin A1c 04/12/18 04/12/18 04/12/18 07:15 14:42 16:53 WBC RBC Hgb Hct Lymph % (Auto) [place] % (Auto) [place] # Seg Neutrophils % Seg Neutrophils # VBG pH Potassium Glucose POC Glucose 186 H 239 H 178 H Hemoglobin A1c
--- NOTE | 2018-04-12 18:42 | Discharge Summary ---
Providers - Providers Date of Admission: 04/08/18 12:00 Attending physician: ELIF MCKEON MD 04/08/18 16:05 Consult to Physician [CONS] Routine Comment: OFFICE NOTIFIED ISELA [id number] Consulting Provider: FLAKO JAMES Physician Instructions: Reason For Exam: hypertensive emergency 04/10/18 13:03 Consult to Physician [CONS] Routine Comment: Consulting Provider: NATALIE PERRY Physician Instructions: Reason For Exam: persistent dizziness and double vision Primary care physician: [employer] Hospitalization Condition: Stable Hospital course: Patient is a 58-year-old -Irish male with history of hypertension on no medication who presented to the ED on account of one week history of dizziness. He has associated nausea with vomiting times multiple episodes and presyncope. He denies headaches, or loss of consciousness. No chest pain, shortness of breath, palpitation, leg swelling, cough, fever or chills. No abdominal pain, constipation, diarrhea, dysuria or frequency. Past History Past Medical History: hypertension Hypertensive emergency due to medication non-compliance -off nicardipine drip -BP improving on oral labetalol and cont amlodipine, cont adjustment as needed -cont PRN hydralazine SIRS without exact source of infection -WBC level trending down on empiric iv antibiotic, on day 3/7 -UA neg, blood cultures neg so far DM2 -BG improved -cont current dose of Lantus and SSI, adjust as needed -hba1c level: 10.2 Dizziness and diplopia, exact cause unknown -pt has multiple risk factors for ischemic lacunar stroke -Head CT scan neg -MRI brain unable to be done due to hx of LT ear metal implant -on PRN meclizine and diazepam -neurology following Intractable nausea and vomiting -resolved -CT abdomen/pelvix showed LT adrenal adenoma or cyst, RT kidney cyst and enlarged prostate Hypokalemia, resolved Hx of non-compliance -pt counseled Disposition: d/c pt when medically stable Disposition: DC-01 TO HOME OR SELFCARE Time spent for discharge: 33 minutes Core Measure Documentation - Palliative Care Palliative Care/ Comfort Measures: Not Applicable - Core Measures Any of the following diagnoses?: none Exam - Constitutional Vitals: Temp Pulse Resp BP Pulse Ox 98.1 F 89 18 130/80 97 04/12/18 07:43 04/12/18 14:14 04/12/18 10:00 04/12/18 14:14 04/12/18 07:43 General appearance: Present: no acute distress, well-nourished - EENT Eyes: Present: PERRL ENT: hearing intact, clear oral mucosa - Neck Neck: Present: supple, normal ROM - Respiratory Respiratory effort: normal Respiratory: bilateral: CTA - Cardiovascular Heart Sounds: Present: S1 & S2. Absent: rub, click - Extremities Extremities: pulses symmetrical, No edema Peripheral Pulses: within normal limits - Abdominal General gastrointestinal: Present: soft, non-tender, non-distended, normal bowel sounds Male genitourinary: Present: normal - Integumentary Integumentary: Present: clear, warm, dry - Musculoskeletal Musculoskeletal: gait normal, strength equal bilaterally - Psychiatric Psychiatric: appropriate mood/affect, intact judgment & insight - Neurologic Neurologic: CNII-XII intact, moves all extremities Plan Follow up with: PRIMARY CARE,MD [Primary Care Provider] - 3-5 Days Prescriptions: Insulin Glargine [Lantus VIAL] 25 units SUB-Q QHS #1 vial amLODIPine [Norvasc] 10 mg PO QDAY #30 tablet Insulin Lispro [HumaLOG VIAL] 0 units SQ AC #1 vial Labetalol [Normodyne TAB] 200 mg PO TID #90 tablet Meclizine [Antivert] 25 mg PO Q6HR PRN #30 tablet PRN Reason: Vertigo Other Discharge Orders: Glucometer supplies[Amb] Location: None Selected Glucometer (Amb) Location: None Selected
[2018-04-12] MEDS: LANTUS SUB-Q SCH (23:06)
[2018-04-13] MEDS: VALIUM PO PRN (01:57)
--- NOTE | 2018-04-13 08:50 | Progress Note ---
Hospitalist Physical - Constitutional Vitals: Temp Pulse Resp BP Pulse Ox 98.5 F 94 H 18 168/113 98 04/13/18 05:38 04/13/18 05:38 04/13/18 05:38 04/13/18 05:38 04/13/18 05:38 General appearance: Present: no acute distress, well-nourished Results - Labs CBC & Chem 7: 04/12/18 06:10 04/09/18 05:12 Labs: Laboratory Last Values WBC 10.8 K/mm3 (4.5-11.0) 04/12/18 06:10 RBC 4.52 M/mm3 (3.65-5.03) 04/12/18 06:10 Hgb 13.5 gm/dl (11.8-15.2) 04/12/18 06:10 Hct 41.2 % (35.5-45.6) 04/12/18 06:10 MCV 91 fl (84-94) 04/12/18 06:10 MCH 30 pg (28-32) 04/12/18 06:10 MCHC 33 % (32-34) 04/12/18 06:10 RDW 14.6 % (13.2-15.2) 04/12/18 06:10 Plt Count 178 K/mm3 (140-440) 04/12/18 06:10 Lymph % (Auto) 14.7 % (13.4-35.0) 04/12/18 06:10 [place] % (Auto) 8.1 % (0.0-7.3) H 04/12/18 06:10 Eos % (Auto) 1.3 % (0.0-4.3) 04/12/18 06:10 Baso % (Auto) 0.5 % (0.0-1.8) 04/12/18 06:10 Lymph # 1.6 K/mm3 (1.2-5.4) 04/12/18 06:10 [place] # 0.9 K/mm3 (0.0-0.8) H 04/12/18 06:10 Eos # 0.1 K/mm3 (0.0-0.4) 04/12/18 06:10 Baso # 0.0 K/mm3 (0.0-0.1) 04/12/18 06:10 Seg Neutrophils % 75.4 % (40.0-70.0) H 04/12/18 06:10 Seg Neutrophils # 8.2 K/mm3 (1.8-7.7) H 04/12/18 06:10 VBG pH 7.443 (7.320-7.420) H 04/08/18 07:38 Sodium 144 mmol/L (137-145) 04/09/18 05:12 Potassium 4.1 mmol/L (3.6-5.0) 04/09/18 05:12 Chloride 101.8 mmol/L (98-107) 04/09/18 05:12 Carbon Dioxide 22 mmol/L (22-30) 04/09/18 05:12 Anion Gap 24 mmol/L 04/09/18 05:12 BUN 18 mg/dL (9-20) 04/09/18 05:12 Creatinine 1.1 mg/dL (0.8-1.5) 04/09/18 05:12 Estimated GFR > 60 ml/min 04/09/18 05:12 BUN/Creatinine Ratio 16 % 04/09/18 05:12 Glucose 236 mg/dL (75-100) H 04/09/18 05:12 POC Glucose 206 (70-105) H 04/13/18 07:23 Hemoglobin A1c 10.2 % (4-6) H 04/09/18 05:12 Lactic Acid 2.00 mmol/L (0.7-2.0) 04/08/18 09:31 Calcium 9.4 mg/dL (8.4-10.2) 04/09/18 05:12 Magnesium 2.00 mg/dL (1.7-2.3) 04/10/18 04:11 Troponin T < 0.010 ng/mL (0.00-0.029) 04/08/18 07:38 Urine Color Yellow (Yellow) 04/08/18 10:05 Urine Turbidity Slightly-cloudy (Clear) 04/08/18 10:05 Urine pH 5.0 (5.0-7.0) 04/08/18 10:05 Ur Specific Nicholls 1.029 (1.003-1.030) 04/08/18 10:05 Urine Protein 100 mg/dl mg/dL (Negative) 04/08/18 10:05 Urine Glucose (UA) >=500 mg/dL (Negative) 04/08/18 10:05 Urine Ketones 20 mg/dL (Negative) 04/08/18 10:05 Urine Blood Neg (Negative) 04/08/18 10:05 Urine Nitrite Neg (Negative) 04/08/18 10:05 Urine Bilirubin Neg (Negative) 04/08/18 10:05 Urine Urobilinogen < 2.0 mg/dL (<2.0) 04/08/18 10:05 Ur Leukocyte Esterase Neg (Negative) 04/08/18 10:05 Urine WBC (Auto) 1.0 /HPF (0.0-6.0) 04/08/18 10:05 Urine RBC (Auto) 1.0 /HPF (0.0-6.0) 04/08/18 10:05 U Epithel Cells (Auto) < 1.0 /HPF (0-13.0) 04/08/18 10:05 Urine Mucus 2+ /HPF 04/08/18 10:05
[2018-04-13] MEDS: NORMODYNE PO SCH ×2 (09:04→14:20)
[2018-04-13] MEDS: HumaLOG SUB-Q SCH ×2 (09:04→13:28)
[2018-04-13] MEDS: LOVENOX SUB-Q SCH (09:25)
[2018-04-13] MEDS: COLACE PO SCH (09:25)
[2018-04-13] MEDS: SODIUM CHLORIDE FLUSH SYRINGE 10 ML IV SCH (09:25)
[2018-04-13] MEDS: LEVAQUIN PO SCH (09:25)
[2018-04-13] MEDS: NORCO 5/325 PO PRN ×2 (09:25→15:05)
[2018-04-13] MEDS: NORVASC PO SCH (09:25)
[2018-04-13] MEDS ORDERED: PEPCID PO SCH (10:00)
[2018-04-13 10:46] VITALS: BP 148/97
[2018-04-13] MEDS: ANTIVERT PO PRN (15:05)
== END 2018-04-13 17:39 | disposition home or self-care (01) | DRG 305 ==
LOC: ED 06:31 → CC1 12:00 → 4A 04-09 00:48
PROVIDERS: ADMIT Internal Medicine; ATTEND Internal Medicine
DX: I16.1 Hypertensive emergency (principal); R65.10 Systemic inflammatory response syndrome (SIRS) of non-infectious origin without acute organ dysfunction; E87.3 Alkalosis; I16.0 Hypertensive urgency; N28.1 Cyst of kidney, acquired; H53.2 Diplopia; R42 Dizziness and giddiness; E87.6 Hypokalemia; E66.9 Obesity, unspecified; E11.65 Type 2 diabetes mellitus with hyperglycemia; Z82.49 Family history of ischemic heart disease and other diseases of the circulatory system; Z91.14 Patient's other noncompliance with medication regimen; Z68.32 Body mass index [BMI] 32.0-32.9, adult; Z71.89 Other specified counseling; Z79.899 Other long term (current) drug therapy; Z79.84 Long term (current) use of oral hypoglycemic drugs
CPT/HCPCS: 36415; 70450; 74176; 80048; 81001; 82140; 82805; 82962; 83036; 83735; 84484; 85025; 87040; 93005; 93010; 93306; 96365; 96366; 96372; 96375; 99291; J0360; J1650; J1815; J1956; J2405; J7030; J7050

== ENCOUNTER 2022-04-28 19:14 | Emergency (ER) | payer SELFPAY ==
[2022-04-28 19:43] LABS: Hematocrit 36.8 % (35.5-45.6); Hemoglobin 11.8 gm/dl (11.8-15.2); Mean Corpuscular HGB Conc 32 % (32-34); Mean Corpuscular Volume 95 fl (84-94); Red Blood Count 3.89 M/mm3 (3.65-5.03)
[2022-04-28 19:49] LABS: Platelet Count 113 K/mm3 (140-440)
[2022-04-28 20:00] LABS: Albumin 3.5 g/dL (3.9-5); Calcium 11.6 mg/dL (8.4-10.2)
[2022-04-28 20:24] LABS: Total Cells Counted 100
[2022-04-28 20:25] LABS: Band Neutrophils # (Manual) 1.1 K/mm3; Basophils % (Manual) 0 % (0.0-1.8)
[2022-04-28 20:34] LABS: Platelet Estimate Consistent w Auto
[2022-04-28] MEDS ORDERED: HEPARIN BOLUS 10,000 UNIT/10 ML VIAL IV ONE (20:36)
--- NOTE | 2022-04-28 20:42 | Cat Scan Report ---
CTA CHEST WITH CONTRAST INDICATION / CLINICAL INFORMATION: Rule out PE. TECHNIQUE: Axial CT images were obtained through the chest after injection of 100 IV contrast. 3 plan e MIP and/or 3D reconstructions were produced. All CT scans at this location are performed using CT d ose reduction for ALARA by means of automated exposure control. COMPARISON: None available. FINDINGS: PULMONARY EMBOLUS: Cardiac/respiratory motion as well as or positioning limit the evaluation. No larg e, central or segmental PTE demonstrated. Small peripheral pulmonary arterial system is incompletely evaluated and small peripheral subsegmental PTE are unable to be entirely excluded on the basis of th is examination. THORACIC AORTA: Caliber satisfactory, luminal evaluation limited by contrast bolus timing. HEART: No significant abnormality. CORONARY ARTERY CALCIFICATION: Present -- Mild. MEDIASTINUM / JENNY: Small volume pneumomediastinum. Additionally, there is suggestion of a small volu me subdural hematoma measuring approximately 9 mm in greatest dimensions on axial image 206 of series 4. PLEURA: No pleural effusion. No pneumothorax. LUNGS: Extensive bilateral airspace consolidation, most severe involving the lower lobes and posterio r aspect of the upper lobes, with surrounding additional ill-defined groundglass opacities. ADDITIONAL FINDINGS: NG tube tip is at the level of the distal esophagus and should be advanced 5 to 10 cm. ET tube tip is at the mid trachea. UPPER ABDOMEN: Striking severe gaseous distention of the stomach. SKELETAL STRUCTURES: Multiple nondisplaced anterior rib fractures. IMPRESSION: 1. Within technical limitations, no evidence for PTE. 2. Extensive bilateral airspace disease, favoring a combination of pulmonary edema and pneumonia. 3. Striking gastric distention with air. When discussing the case with the referring physician, we ar e informed of resuscitation in the field which may account for this appearance. NG tube tip is at the distal esophagus and should be advanced into the stomach for decompression. 4. Small volume of pneumomediastinum, small volume substernal hematoma, anterior fractures, likely se quelae of recent reported cardiopulmonary resuscitation. 5. Findings were discussed with, and acknowledged by, Dr. Guevara in the ED at 7:35 PM central time on the date of study. Signer Name: Ruth Beverly MD Signed: 04/28/2022 8:38 PM Workstation Name: [email or web address]
--- NOTE | 2022-04-28 20:44 | Emergency Department Report ---
ED CPR HPI - General Chief Complaint: Cardiac Arrest/CPR Stated Complaint: CARDIC ARREST Time Seen by Provider: 04/28/22 19:33 Source: EMS Mode of arrival: Stretcher Limitations: Other - History of Present Illness Initial Comments: Patient is a 62-year-old male brought in by EMS for unwitnessed cardiac arrest. He was reportedly found down at approximately 6:20 PM by his . Last known well time was approximately 5:00 PM. EMS arrived and initiated ACLS measures with initial rhythm of asystole. Patient was defibrillated several times in route. Silverio airway was placed unknowingly in the esophagus. Abdomen significantly distended on arrival. - Related Data Previous Rx's Medication Instructions Recorded Last Taken Type Insulin Glargine [Lantus VIAL] 25 units SUB-Q QHS #1 vial 04/12/18 Unknown Rx Insulin Lispro [HumaLOG VIAL] 0 units SQ AC #1 vial 04/12/18 Unknown Rx Meclizine [Antivert] 25 mg PO Q6HR PRN #30 tablet 04/12/18 Unknown Rx amLODIPine 10 mg PO QDAY #30 tablet 04/12/18 Unknown Rx labetaloL [Labetalol 200mg TAB] 200 mg PO TID #90 tablet 04/12/18 Unknown Rx Allergies Allergy/AdvReac Type Severity Reaction Status Date / Time No Known Allergies Allergy Unverified 04/30/17 11:27 ED Review of Systems ROS: Stated complaint: CARDIC ARREST Other details as noted in HPI Comment: Unobtainable due to pts medical conditions ED Past Medical Hx - Past Medical History Hx Hypertension: Yes Hx Heart Attack/AMI: No Hx Congestive Heart Failure: No Hx Diabetes: Yes Hx Deep Vein Thrombosis: No Hx Liver Disease: No Hx Asthma: No Hx COPD: No - Surgical History Hx Coronary Stent: No Hx Pacemaker: No Hx Internal Defibrillator: No Additional Surgical History: bilaterally knee surgery - Social History Smoking Status: Never Smoker - Medications Home Medications: Home Medications Medication Instructions Recorded Confirmed Last Taken Type Insulin Glargine [Lantus VIAL] 25 units SUB-Q QHS #1 vial 04/12/18 Unknown Rx Insulin Lispro [HumaLOG VIAL] 0 units SQ AC #1 vial 04/12/18 Unknown Rx Meclizine [Antivert] 25 mg PO Q6HR PRN #30 tablet 04/12/18 Unknown Rx amLODIPine 10 mg PO QDAY #30 tablet 04/12/18 Unknown Rx labetaloL [Labetalol 200mg TAB] 200 mg PO TID #90 tablet 04/12/18 Unknown Rx ED Physical Exam - General Limitations: Other General appearance: obtunded - Head Head exam: Present: atraumatic, normocephalic - Eye Pupils: Present: other (Pupils nonreactive) - Respiratory Respiratory exam: Present: other (No spontaneous respirations, patient being bagged) - Cardiovascular Cardiovascular Exam: Present: other (CPR in progress) - GI/Abdominal GI/Abdominal exam: Present: distended - Rectal Rectal exam: Present: deferred - Neurological Exam Neurological exam: Present: other (GCS 3 T) - Skin Skin exam: Present: warm, dry, intact, normal color - Intubation Time Out Performed: No Laryngoscope: fiberoptic video scope Size: 4 ET Tube Size: 7.5 Tube Secured Depth (cm): 23 Tube Secured Location: lips Tube Placement Confirmation: visualized tube passing t, equal breath sounds bilat Patient Tolerated Procedure: well, no complications Intubation Complications: none ED Medical Decision Making - Lab Data Result diagrams: 04/28/22 Unknown 04/28/22 Unknown - EKG Data -: EKG Interpreted by Me EKG shows normal: sinus rhythm Rate: tachycardia - EKG Data 04/28/22 22:00 Right bundle branch block. ST depressions in anterior leads with questionable ST elevation in lateral leads. - Medical Decision Making Silverio airway removed and patient intubated by me. CPR continued for several cycles along with administration of multiple ACLS meds. ROSC obtained. EKG shows right bundle branch block with anterior depressions in lateral elevation. EKG transmitted to interventional Dr. Victor who feels this is not consistent with acute STEMI. Recommended CT head and CTA chest to rule out PE and to start heparin if CT head unremarkable. CT head shows diffuse cerebral and cerebellar edema, likely from hypoxic brain injury. CTA chest negative for PE. Heparin drip ordered. Troponin 0.553. WBC count 14,000. Lactic acid is 12. IV fluids ordered. Patient coded again in the emergency department and remained in asystole after several cycles of CPR. Given poor prognosis the decision was made to discontinue further resuscitative efforts. Patient . Critical Care Time: Yes Critical care time in (mins) excluding proc time.: 45 Critical care attestation.: If time is entered above; I have spent that time in minutes in the direct care of this critically ill patient, excluding procedure time. ED Disposition Clinical Impression: Cardiopulmonary arrest, Hypoxic brain injury Disposition: 20 Is pt being admited?: No
[2022-04-28] MEDS ORDERED: SODIUM CHLORIDE 0.9% 1000 ML 1,000 ML IV ONE (20:47)
--- NOTE | 2022-04-28 20:48 | Cat Scan Report ---
CT head/brain wo con INDICATION / CLINICAL INFORMATION: 62 years Male; Altered Mental Status. TECHNIQUE: Routine CT head without contrast. All CT scans at this location are performed using CT dos e reduction for ALARA by means of automated exposure control. Significant motion artifact COMPARISON: 04/08/2018 FINDINGS: BRAIN / INTRACRANIAL CONTENTS: There may be loss of hatfield/white differentiation in the cerebellar sarbjit spheres-ischemia cannot be excluded. However, motion artifact certainly may be contributing to this o bservation. Some component of diffuse cerebral edema may be present as well-sulcal markings about the cerebral co nvexities are suggested less well visualized when compared with prior. Lateral ventricles are relativ erika decreased in size when compared with prior exam, which may further substantiate the possibility o f cerebral edema. Basal cisterns remain well-visualized at this time. Otherwise, no acute hemorrhage, mass effect, midline shift, hydrocephalus, or acute, large territori al infarct. No signs of significant atrophy. Mild component of white matter disease suspected. CRANIOCERVICAL JUNCTION: No significant abnormality. ORBITS: No significant abnormality of visualized orbits. SINUSES / MASTOIDS: Patient is intubated. NG tube noted. There is mild to moderate mucosal thickening with scattered air-fluid levels seen throughout the visualized paranasal sinuses. Mild to moderate m ucosal thickening seen in the mastoids. Secretions are seen layering in the nasopharynx. ADDITIONAL FINDINGS: None. IMPRESSION: 1. I am concerned about cerebral and cerebellar edema, as described above. Pre and postcontrast MRI o f the brain may be helpful for further evaluation. 2. No focal mass, acute hemorrhage, hydrocephalus, or acute, large infarct appreciated. Signer Name: Jose Cruz Starks MD, III Signed: 04/28/2022 8:44 PM Workstation Name: [id number]
[2022-04-28] MEDS ORDERED: HEPARIN/ 0.45% NACL DRIP 25,000 UNIT/250 ML BAG IV SCH (21:00)
[2022-04-28 21:03] LABS: Hematocrit 44.4 % (35.5-45.6); Hemoglobin 14.2 gm/dl (11.8-15.2)
[2022-04-28 21:14] LABS: INR 1.25 (0.87-1.13)
[2022-04-28 21:15] LABS: Partial Thromboplastin Time 51.1 Sec. (24.2-36.6)
--- NOTE | 2022-04-28 21:15 | XRay Report ---
ABDOMEN 1 VIEW 04/28/2022 8:01 PM INDICATION / CLINICAL INFORMATION: NG tube placement. COMPARISON: CTA chest earlier today. FINDINGS: TUBES / LINES: NG tube is in position, tip projecting near the GE junction, not definitively demonstr ated more distally. Marked gaseous gastric distention. BOWEL GAS PATTERN: Severe gaseous gastric distention. FREE AIR / EXTRALUMINAL GAS: None. ADDITIONAL FINDINGS: No significant additional findings. IMPRESSION: 1. NG tube tip not visualized beyond the distal esophagus, located at this position on previous recen t CT. Advancement and reimaging is recommended . Recommendation for advancement was discussed with Dr Jing Guevara in the ED at 7:35 PM central time on the date of study. 2. Severe gaseous gastric distention. Signer Name: Ruth Beverly MD Signed: 04/28/2022 9:10 PM Workstation Name: [email or web address]
--- NOTE | 2022-04-28 21:19 | XRay Report ---
CHEST 1 VIEW 04/28/2022 8:15 PM INDICATION / CLINICAL INFORMATION: Tube placement. COMPARISON: CTA chest performed today. FINDINGS: SUPPORT DEVICES: An ET tube terminates 3 cm above the [place]. There is expected positioning of an eso phagogastric tube is visualized. HEART / MEDIASTINUM: Stable. LUNGS / PLEURA: Generalized bilateral airspace opacities are again seen. No significant pleural effus ion. No pneumothorax. ADDITIONAL FINDINGS: No significant additional findings. IMPRESSION: 1. Expected positioning of ET and esophagogastric tubes with extensive bilateral airspace opacities, possibly representing edema or pneumonia. 2. Please see the separately dictated report for the CTA chest performed concomitantly for further de tails. Signer Name: Dawood Goodwin MD Signed: 04/28/2022 9:14 PM Workstation Name: [id number]
[2022-04-28 21:32] LABS: ABG Base Excess -10.4 mmol/L (-2.0-3.0); ABG HCO3 19.7 mmol/L (20.0-26.0); ABG Methemoglobin 0.8 % (0.0-1.5); ABG Oxygen Saturation 54.7 % (95.0-99.0); ABG PCO2 61.6 mm Hg
[2022-04-28] MEDS ORDERED: CALCIUM CHLORIDE 1,000 MG/10 ML SYRINGE IV ONE (22:40)
[2022-04-28] MEDS ORDERED: SODIUM BICARB 8.4% 50 MEQ/50 ML SYRINGE IV ONE (22:40)
[2022-04-28] MEDS ORDERED: EPINEPHrine 1 MG/10 ML SYRINGE ONE (22:40)
[2022-04-28 22:41] VITALS: BP 159/107
[2022-04-28 22:44] LABS: ABG PH 7.122 pH Units (7.350-7.450)
[2022-04-28 23:58] LABS: Chol/HDL Ratio 4.23 %
--- NOTE | 2022-04-29 09:32 | Electrocardiograph Report ---
[facility] Test Date: 2022-04-28 Test Time: 19:22:23 Pat Name: CORNELL COOLEY Department: Room: Gender: M [employer] Supervisor: ANDREW : 1960 Requested By: JUAN MOE Order Number: [id number] Reading MD: Lemuel Maldonado Measurements Intervals [place] Rate: 121 P: 61 AK: 104 QRS: 107 QRSD: 159 T: 6 QT: 320 QTc: 454 Interpretive Statements Sinus tachycardia Atrial premature complexes RBBB and LPFB NONSPECIFIC ST DEPRESSION, ANT-LAT LEADS No previous ECG available for comparison Electronically Signed On 04-29-2022 9:32:41 EDT by Lemuel Maldonado
== END 2022-04-29 01:15 ==
LOC: ED 19:14
DX: I46.9 Cardiac arrest, cause unspecified (principal); P91.60 Hypoxic ischemic encephalopathy [HIE], unspecified; I10 Essential (primary) hypertension; E11.9 Type 2 diabetes mellitus without complications; R79.1 Abnormal coagulation profile; Z79.4 Long term (current) use of insulin; Z79.899 Other long term (current) drug therapy
CPT/HCPCS: 31500; 36415; 70450; 71045; 71275; 74018; 80053; 80061; 82140; 82550; 82803; 84484; 85007; 85014; 85018; 85025; 85049; 85610; 85730; 92950; 93005; 99291; J0171; J3490; Q9967; 80320; 94002; G0480